=== PATIENT | female | born 1995 | race Caucasian/White ===

== ENCOUNTER → 2021-08-24 07:58 | Outpatient (BNVA) | payer OTHER, SELFPAY | PROVIDERS: PCP Family Medicine; Visit Provider Physician Assistant Surgical ==

== ENCOUNTER → 2021-08-30 08:08 | Outpatient (BNVA) | payer OTHER, SELFPAY | PROVIDERS: PCP Family Medicine; Visit Provider Surgery ==

== ENCOUNTER 2021-09-07 07:45 | Outpatient (REF) | payer OTHER, SELFPAY ==
--- NOTE | ~2021-09-07 | XR_ITS ---
EXAMINATION: XR CHEST CLINICAL INFORMATION: Obesity COMPARISON: None TECHNIQUE: 2 views of the chest were obtained. FINDINGS: No significant abnormality is noted involving the heart, lungs, mediastinum, bony thorax or soft tissues. XR/XR chest 2V IMPRESSION: Unremarkable examination.
--- NOTE | 2021-09-07 08:03 | ECG_ITS ---
Test Reason : obesity Blood Pressure : / mmHG Vent. Rate : 072 BPM Atrial Rate : 072 BPM P-R Int : 130 ms QRS Dur : 102 ms QT Int : 408 ms P-R-T Axes : 025 -01 -02 degrees QTc Int : 446 ms Normal sinus rhythm Incomplete right bundle branch block Nonspecific T wave abnormality Inferior leads Abnormal ECG When compared with ECG of 05-OCT-2017 09:14, T wave inversion no longer evident in Anterior leads Referred By: Ra Funk Electronically Signed By:KRISTINE SIMMONS MD
[2021-09-07 08:04] LABS: MANUAL DIFF FLAG NO
[2021-09-07 08:18] LABS: Basophils Percent Auto 0.8 % (0-2); Eosinophils Percent Auto 0.6 % (0-4); Hematocrit 38.3 % (37-47); Hemoglobin 12.9 g/dl (12.0-16.0); Imm Gran Abs Auto 0.01 X10*3/uL (0.00-0.03); Imm Gran Pct Auto 0.2 % (0.0-0.4); Lymphocytes Absolute Auto 1.8 X10*3/uL (1.2-4.9); Mean Corpuscular HGB Conc 33.7 g/dl (31.0-35.0); Mean Corpuscular Hemoglobin 29.1 pg (27.0-33.0); Mean Corpuscular Volume 86.3 fL (80-98); Mean Platelet Volume 11.5 fL (9.4-12.3); Monocytes Absolute Auto 0.4 X10*3/uL (0.1-1.2); Monocytes Percent Auto 7.4 % (2-11); Platelet Count 252 X10*3/uL (160-400); Red Blood Count 4.44 X10*6/uL (4.20-5.50); Red Cell Distribution Width 12.6 % (11.0-16.0); White Blood Count 5.2 X10*3/uL (4.8-10.8)
[2021-09-07 08:43] LABS: Estimated Average Glucose 85 mg/dL; Hemoglobin A1c % 4.6 %
[2021-09-07 08:45] LABS: Alanine Aminotransferase 10 U/L (0-31); Albumin Level 4.2 g/dL (3.5-5.0); Alkaline Phosphatase 45 U/L (39-117); Anion Gap 10 (12-20); Aspartate Amino Transferase 13 U/L (5-31); Bilirubin Total 0.6 mg/dL (0.0-1.0); Blood Urea Nitrogen 12 mg/dL (9-16); C Reactive Protein 0.17 mg/dL (< or = 0.50); Calcium 9.2 mg/dL (8.4-10.2); Carbon Dioxide 23 mmol/L (22-29); Chloride 108 mmol/L (96-108); Cholesterol 189 mg/dL; Estimated Glomerular Filt Rate > 60; Glucose Random 94 mg/dL (60-115); HDL Cholesterol 36 mg/dL; Iron 95 mcg/dL (30-160); LDL Cholesterol Calculated 139 mg/dl; Percent Iron Saturation 28 % (15-50); Potassium 3.9 mmol/L (3.3-5.1); Sodium 137 mmol/L (135-145); Total Iron Binding Capacity 336 mcg/dL (228-428); Triglycerides 73 mg/dL; Unsaturated Iron Binding 241 ug/dL
[2021-09-07 09:07] LABS: TSH reflex Free T4 0.85 uIU/mL (0.32-4.0); Vitamin D 25-OH Total 18.4 ng/mL (>30)
[2021-09-07 09:18] LABS: Insulin 10 uU/mL (2-29)
[2021-09-07 09:22] LABS: Vitamin B12 329 pg/mL (200-900)
[2021-09-07 09:35] LABS: Ferritin 11 ng/mL (10-122)
[2021-09-08 15:51] LABS: PTHI 53 pg/mL (14-64)
[2021-09-09 12:29] LABS: H Pylori Breath Test Positive (Negative)
[2021-09-10 06:16] LABS: Zinc 68 mcg/dL (60-130)
[2021-09-11 12:42] LABS: Vitamin B1 <6 nmol/L (8-30)
[2021-09-12 12:52] LABS: Vitamin A 30 mcg/dL (38-98)
== END 2021-09-07 07:46 | disposition home or self-care (01) ==
LOC: HO.LAB 07:45
PROVIDERS: PCP Family Medicine; Visit Provider Surgery
DX: E66.01 Morbid (severe) obesity due to excess calories (principal); K21.9 Gastro-esophageal reflux disease without esophagitis; Z11.0 Encounter for screening for intestinal infectious diseases
CPT/HCPCS: 36415; 71046; 80053; 80061; 82306; 82607; 82728; 82746; 83013; 83036; 83525; 83540; 83970; 84425; 84443; 84590; 84630; 85025; 86140; 93005; 99211

== ENCOUNTER → 2021-09-27 08:09 | Outpatient (BNVA) | payer OTHER, SELFPAY | PROVIDERS: PCP Family Medicine; Visit Provider Surgery ==

== ENCOUNTER → 2021-10-04 08:09 | Outpatient (BNVA) | payer OTHER, SELFPAY | PROVIDERS: PCP Family Medicine; Visit Provider Dietitian, Registered | DX: E66.01 Morbid (severe) obesity due to excess calories (principal); Z68.42 Body mass index [BMI] 45.0-49.9, adult | CPT/HCPCS: 97802 ==

== ENCOUNTER 2021-10-18 | Outpatient (REF) | payer OTHER, SELFPAY ==
[2021-10-22 07:19] LABS: H Pylori Breath Test Negative (Negative)
== END 2021-10-18 00:01 | disposition home or self-care (01) ==
LOC: HO.LNP
PROVIDERS: Visit Provider Physician Assistant Surgical
DX: Z11.0 Encounter for screening for intestinal infectious diseases (principal)
CPT/HCPCS: 83013

== ENCOUNTER → 2021-10-18 08:02 | Outpatient (BNVA) | payer OTHER, SELFPAY | PROVIDERS: PCP Family Medicine; Referring Provider Family Medicine; Visit Provider Surgery | DX: Z11.0 Encounter for screening for intestinal infectious diseases (principal) | CPT/HCPCS: 99211 ==

== ENCOUNTER → 2021-11-12 08:09 | Outpatient (BNVA) | payer OTHER, SELFPAY | PROVIDERS: PCP Family Medicine; Visit Provider Surgery ==

== ENCOUNTER 2021-11-25 08:22 | Outpatient (REF) | payer OTHER, SELFPAY ==
--- NOTE | ~2021-11-25 | US_ITS ---
EXAMINATION: US COMPLETE ABDOMEN WITH LIVER ELASTOGRAPHY CLINICAL INFORMATION: Bariatric service evaluation. E66.01 COMPARISON: CT abdomen and pelvis with IV contrast 09/30/2015. TECHNIQUE: Real-time imaging of the abdominal viscera. Noninvasive ultrasound liver fibrosis assessment is performed using Shea ElastPQ point quantification shear wave elastography (2D SWE) with a C5-2 MHz transducer. Multiple elastography samples are obtained. FINDINGS: PANCREAS: The pancreas is normal in size and contour and echogenicity. No pancreatic ductal distention. ABDOMINAL AORTA: The proximal, middle, and distal aortic segments are normal in caliber. INFERIOR VENA CAVA: Visualized portions are normal. LIVER: The liver is normal in size and smooth in contour. Parenchymal echogenicity is normal to borderline increased. There is a solitary subcapsular mildly hyperechoic circumscribed lesion anterior right lobe measuring 1.4 x 1.2 x 1.2 cm, likely hemangioma. Lesion is not appreciated on remote CT 2015. The remainder liver is homogeneous. The right lobe measures 16.3 cm in length. The left lobe measures 13.1 cm in length. Portal flow is towards the liver (hepatopetal). Shear wave liver elastography median stiffness is 1.49 m/s (reference: normal median stiffness is 1.3 m/s or less). IQR/median stiffness to assess sampling precision is 0.26 (reference: good quality data set is IQR/median stiffness of 0.15 or less). GALLBLADDER: Normal. The gallbladder is physiologically distended without evidence of stones, sludge, polyps, wall thickening or pericholecystic fluid. COMMON BILE DUCT: Normal in caliber measuring 0.3 cm in diameter. RIGHT KIDNEY: Normal. No hydronephrosis. No renal calculi or focal parenchymal lesions. The kidney measures 11.3 cm in maximum dimension. LEFT KIDNEY: Normal. No hydronephrosis. No renal calculi or focal parenchymal lesions. The kidney measures 10.9 cm in maximum dimension. SPLEEN: The spleen measures 13.5 cm in maximal dimension, similar to CT 2015 sagittal measurement 14 cm. FREE FLUID: None. US/US abdomen comp w elastography IMPRESSION: 1. Liver normal in size and contour. Probable solitary subcapsular hepatic hemangioma anterior right lobe 1.4 cm. 2. Liver elastography: Although measurements appear to rule out compensated advanced chronic liver disease, there is statistical variability of the sampling which decreases accuracy. 3. No cholelithiasis or ductal dilatation. Pancreas and kidneys unremarkable. REFERENCE: Society of Radiologists in Ultrasound Liver Stiffness Thresholds (2020): LIVER STIFFNESS THRESHOLDS: *Liver Stiffness equal or less than 1.3 m/s: High probability of being normal. *Liver Stiffness less than 1.7 m/s: In the absence of other known clinical signs, rules out compensated advanced chronic liver disease. *Liver Stiffness 1.7-2.1 m/s: Suggestive of compensated advanced chronic liver disease but need further test for confirmation. *Liver Stiffness over 2.1 m/s: Rules in compensated advanced chronic liver disease. *Liver Stiffness over 2.4 m/s: Suggestive of clinically significant portal hypertension. QUALITY OF DATA SET: *IQR/Median value equal or less than 0.15 implies a quality data set. *IQR/Median value over 0.15 implies a poor quality data set. SIGNIFICANT CHANGE FROM PRIOR EXAM: Significant change if liver stiffness measurement is 10% or greater from prior exam. OTHER CONSIDERATIONS: The stage of liver fibrosis may be overestimated in the setting of acute hepatitis, liver inflammation, elevated liver function tests, hepatic vascular congestion, obstructive cholestasis, non-fasting state, and infiltrative diseases such as amyloidosis and lymphoma. In some patients with NAFLD, the liver stiffness thresholds for compensated advanced chronic liver disease may be lower. In causes other than viral hepatitis and NAFLD, liver stiffness thresholds are not well established.
--- NOTE | ~2021-11-25 | FL_ITS ---
EXAMINATION: XR FLUOROSCOPY UPPER GI WITH AIR CLINICAL INFORMATION: Morbid obesity COMPARISON: None TECHNIQUE: Air-contrast upper GI examination FINDINGS: There is normal apposition of the vocal cords while saying E. There is normal elevation of the soft palate while saying candy. Patient swallowed thin barium without difficulty. There is no evidence of nasopharyngeal reflux or tracheal aspiration. There is normal esophageal motility without evidence of persistent stricture or mucosal abnormality. No hiatal hernia is seen. There was mild transient gastroesophageal reflux elicited with water siphon test. The stomach demonstrates normal distensibility without abnormal mass or ulceration. There was no delay in gastric emptying. The duodenal bulb and sweep appeared unremarkable. FLUOROSCOPY TIME: 0.4 minutes DOSE AREA PRODUCT: 17.563 mGy-m2 (milligray-meter squared) FL/FL upper GI w air IMPRESSION: Mild transient esophageal reflux within the distal third of the esophagus which clears rapidly. Otherwise unremarkable study.
--- NOTE | 2021-11-25 10:25 | CA_ITS ---
Transthoracic Echocardiogram Patient (Last, First, Middle): Suzette Azar, Gender: Female Date of : 1995 Age: 26 Procedure Date: 11/25/2021 Procedure Type: Transthoracic Echocardiogram Location: OP Height: 162.56 cm Weight: 122.47 kg BSA: 2.22 m2 Heart Rate: bpm BP: 130 / 95 mmHg Cobol Developer: MIKE Referring MD: Ra Funk MD Research/Program Director: Papa Gregg MD Symptoms: R94.31 - Abnormal electrocardiogram [ECG] [EKG] Study Quality: Technically Difficult/contrast ECG Rhythm: Sinus Conclusions: - Essentially normal study Findings Procedure Information Contrast agent, definity, is being given per protocol without apparent complications. Left Ventricle Normal left ventricular size, thickness, and systolic function. The visually estimated ejection fraction is between 60-65%. There is no evidence of regional wall motion abnormalities. Spectral Doppler is indicative of a normal filling pattern. Evidence suggests grade I (mild) diastolic dysfunction. Right Ventricle Normal right ventricular cavity size and systolic function. Atria Both atria are normal in size. There is lipomatous hypertrophy of the interatrial septum. There is no evidence of interatrial shunt. Aortic Valve The aortic valve structure and function is likely normal. There is no aortic valve stenosis. There is no aortic valve regurgitation. Mitral Valve Normal mitral valve structure and function. There is trace mitral valve regurgitation. There is no mitral valve stenosis. Pulmonic Valve The pulmonic valve was not well visualized. Tricuspid Valve Likely normal tricuspid valve structure and function. There is trace tricuspid valve regurgitation. The right ventricular systolic pressure is normal. The right ventricular systolic pressure is 19 mmHg. Normal right atrial pressure. There is no evidence of pulmonary hypertension. Great Vessels All visible segments of the aorta are normal in size. The pulmonary artery was not well visualized. Venous The inferior vena cava collapses greater than 50% with inspiration. Pericardium/Pleural There is no evidence of pericardial effusion. Prior Study Comparison No prior study available for comparison. Measurements 2D Linear Measurements IVSd: 0.92 0.6-0.9/0.6-1.0 cm LVIDd: 5.09 3.9-5.3/4.2-5.9 cm LVIDd Index: 2.29 2.4-3.2/2.2-3.1 cm/m2 LVIDs: 3.22 2.0-3.6 cm LVPWd: 0.76 0.7-1.1 cm Ao Root: 3.10 2.1-3.5 cm LA Diam: 3.90 2.7-3.8/3.0-4.0 cm LAIDs Index: 1.76 1.5-2.3 cm/m2 LV Mass: 186.41 67-162/88-224 g LV Mass Index: 83.97 43-95/49-115 g/m2 LVOT Diam: 2.20 3.0+(-)1.3 cm 2D Systolic Function EF 4C: 62.90 >55% EF 2C: 69.20 >55% EF BiP: 64.20 >55% Mitral Valve MV Pk E: 1.06 MV PK A: 0.62 MV Decel Time: 201.00 E/A: 1.70 E'Lateral: 12.60 E'Medial: 10.10 E/E' Med: 10.50 E/E' Lat: 8.40 PHT: 59.00 MVA PHT: 3.73 Decel [place]: 5.29 Aortic Valve AoV Pk Robert: 1.49 AoV Mn Robert: 1.07 AoV VTI: 0.33 AoV Pk Grad: 9.00 Aov Mn Grad: 5.00 VALORIE Cont.VTI: 3.48 LVOT LVOT Pk Robert: 1.40 LVOT Mn Robert: 0.94 LVOT VTI: 0.30 LVOT Pk Grad: 8.00 LVOT Mn Grad: 4.00 LVOT Diam: 2.20 LVOT Area: 3.80 Diastolic Function MV Pk E: 1.06 MV Pk A: 0.62 E/A: 1.70 E'Medial: 10.10 E/E' Med: 10.50 E' Laterial: 12.60 E/E' Lat: 8.40 Right Ventricle TAPSE (mm): 26.30 TVS' Robert: 11.40 Tricuspid Valve TR Pk Robert: 2.00 TR Pk Grad: 16.00 RA Press: 3.00 RVSP: 19.00 Great Vessels Aorta Ao Root-2D: 3.10 2.0-3.7 cm Ao Asc: 3.30 2.1-3.4 cm Ao Arch: 2.90 Updated in Other Vendor System with Status of Final Papa Gregg MD electronically signed on 11/25/2021 3:12:49 PM with status of Final
== END 2021-11-25 08:23 | disposition home or self-care (01) ==
LOC: HO.XRAY 08:22
PROVIDERS: PCP Family Medicine; Visit Provider Surgery
DX: E66.01 Morbid (severe) obesity due to excess calories (principal); K21.9 Gastro-esophageal reflux disease without esophagitis; R94.31 Abnormal electrocardiogram [ECG] [EKG]
CPT/HCPCS: 74246; 76705; 76981; 93306; Q9957

== ENCOUNTER → 2021-12-13 08:02 | Outpatient (BNVA) | payer OTHER, SELFPAY | PROVIDERS: PCP Family Medicine; Visit Provider Surgery ==

== ENCOUNTER → 2022-01-12 08:12 | Outpatient (BNVA) | payer OTHER, SELFPAY | PROVIDERS: PCP Family Medicine; Visit Provider Surgery ==

== ENCOUNTER → 2022-02-11 08:18 | Outpatient (BNVA) | payer OTHER, SELFPAY | PROVIDERS: PCP Family Medicine; Visit Provider Surgery | DX: Z13.89 Encounter for screening for other disorder (principal) ==

== ENCOUNTER → 2022-02-17 10:28 | Outpatient (BNVA) | payer OTHER, SELFPAY | PROVIDERS: PCP Family Medicine; Referring Provider Family Medicine; Visit Provider Surgery | DX: Z13.89 Encounter for screening for other disorder (principal) ==

== ENCOUNTER 2022-02-24 08:29 | Inpatient (IN) | payer OTHER, SELFPAY ==
[2022-02-16 10:55] VITALS: BMI 43.9
[2022-02-17 10:25] LABS: MANUAL DIFF FLAG NO
[2022-02-17 11:12] LABS: Basophils Percent Auto 0.8 % (0-2); Eosinophils Percent Auto 0.6 % (0-4); Imm Gran Abs Auto 0.01 X10*3/uL (0.00-0.03); Imm Gran Pct Auto 0.2 % (0.0-0.4); Lymphocytes Absolute Auto 1.8 X10*3/uL (1.2-4.9); Lymphocytes Percent Auto 34.2 % (20-40); Mean Corpuscular HGB Conc 33.3 g/dl (31.0-35.0); Mean Corpuscular Hemoglobin 29.4 pg (27.0-33.0); Mean Corpuscular Volume 88.2 fL (80.0-98.0); Mean Platelet Volume 12.1 fL (9.4-12.3); Monocytes Absolute Auto 0.4 X10*3/uL (0.1-1.2); Monocytes Percent Auto 7.6 % (2-11); Neutrophils Percent Auto 56.6 % (45-73); Platelet Count 230 X10*3/uL (160-400); Red Blood Count 4.42 X10*6/uL (4.20-5.50); Red Cell Distribution Width 12.9 % (11.0-16.0); White Blood Count 5.2 X10*3/uL (4.8-10.8)
[2022-02-17 11:17] LABS: INTERNATIONAL NORM RATIO 1.1 (0.9-1.1); Prothrombin Time 12.9 SEC (9.9-13.0)
[2022-02-17 11:19] LABS: Partial Thromboplastin Time 35.6 SEC (24.1-38.0)
[2022-02-17 11:28] LABS: Estimated Average Glucose 88 mg/dL; Hemoglobin A1c % 4.7 %
[2022-02-17 11:53] LABS: Alanine Aminotransferase 12 U/L (0-31); Albumin Level 4.3 g/dL (3.5-5.0); Alkaline Phosphatase 39 U/L (39-117); Anion Gap 13 (12-20); Aspartate Amino Transferase 15 U/L (5-31); Bilirubin Total 0.8 mg/dL (0.0-1.0); Blood Urea Nitrogen 13 mg/dL (9-16); C Reactive Protein 0.21 mg/dL (< or = 0.50); Calcium 9.5 mg/dL (8.4-10.2); Carbon Dioxide 21 mmol/L (22-29); Chloride 108 mmol/L (96-108); Cholesterol 176 mg/dL; Creatinine Clr Calc Pharmacy 143.6; Estimated Glomerular Filt Rate > 60; Glucose Random 77 mg/dL (60-115); HDL Cholesterol 35 mg/dL; LDL Cholesterol Calculated 126 mg/dl; Sodium 138 mmol/L (135-145); Total Protein 7.2 g/dL (6.5-8.0); Triglycerides 79 mg/dL
[2022-02-17 12:31] LABS: TSH reflex Free T4 0.52 uIU/mL (0.32-4.0)
[2022-02-17 13:11] LABS: Insulin 8 uU/mL (2-29)
--- NOTE | 2022-02-18 23:43 | P.HPSUR_ITS ---
Pre-Procedural Eval Section A Date of Service: 02/18/22 The patient is an INPATIENT: Yes The History & Physical has been completed within 30 days and I have reviewed it.: Yes Section B Chief Complaint: obesity Relevant Family History (Specify if Yes): No Relevant Social History: None Present Medications: None Medical History: No relevant PMH History of Previous Operations: No relevant previous surgery Allergies: Allergies Allergy/AdvReac Type Severity Reaction Status Date / Time mold Allergy Severe Rash, Itchy Verified 02/16/22 10:52 Seasonal Allergies Allergy Severe Runny Verified 02/16/22 10:52 Nose, Watery Eyes Review of Systems Sugical H&P ROS: Negative: Constitution, Cardiovascular, Respiratory, Neurological, Psychiatric, Hem-Onc, Allergic/Immunologic, Gastrointestinal, Genitourinary, Musculoskeletal, Integumentary, Endocrine and Eyes/Ears/Nose/Throat Exam Surgical H&P Exam: Normal: HEENT, Normal: Heart, Normal: Lungs, Normal: Extr emities, Normal: Abdomen, Normal: Skin and Normal: Neurological Plan Diagnosis/Plan: Unchanged I have reviewed the history and physical and performed a pertinent physical examination on my patient. No changes have occurred unless specified.
--- NOTE | 2022-02-23 10:56 | HO.ANESPROP2 ---
Documented by User: Imelda Grimes NP 02/23/22 10:57 HPI - Anesthesia Eval Consult details Narrative: 26yo F for Gastrectomy Sleeve,EGD,poss diaphragmatic hernia,poss ventral hernia,poss open, PMFSH Active Problems Active Problems: All Active Problems (Updated 10/05/21 @ 08:55 by Fariba Arndt, [facility]) SUKUMAR (generalized anxiety disorder) (Acute) Moderate episode of recurrent major depressive disorder (Acute) H. pylori infection (Acute) Vitamin B12 deficiency (Acute) Vitamin A deficiency (Acute) Vitamin D deficiency (Acute) Vitamin B1 deficiency (Acute) Abnormal EKG (Acute) Back pain (Acute) GERD (gastroesophageal reflux disease) (Acute) Anxiety (Acute) Depression (Acute) Morbid obesity (Acute) Past Medical History Medical History Anxiety Back pain Depression GERD (gastroesophageal reflux disease) Morbid obesity Family History Family History Mother Asthma Diabetes Hypertension Father Asthma Diabetes Hyperlipidemia Hypertension Sister No problems noted. Sister No problems noted. Sister No problems noted. Sister No problems noted. Brother No problems noted. Brother No problems noted. Brother No problems noted. Brother No problems noted. Surgical History Surgical History Hx of wisdom tooth extraction Social History Social History Are you a primary pulmonary care nurse to a significant other at home: No Do you presently have visiting nurse or other home services: No Alcohol intake: current Alcohol intake frequency: holidays/special occasions only Patient Tobacco Use Status: Never used Tobacco Use of substances other than those prescribed or required for medical reasons: No Have you been hit, kicked, punched, or otherwise hurt by someone within the past year? If so, by whom?: No Are you DNR?: No Advance Directives: No Advance Directives Information Provided: Yes (Mailed w/ Pre-op Instructions) Advance Directives on File: No Recently lost weight without trying: No How much weight loss: 34pounds or more Eating poorly because of decreased appetite: No Nutrition screen score: 4 Nutrition Risks: No Nutritional Risk Patient : No FDLMP: 01/21/22 : No Poor oral hygiene: No Meds Allergies Allergy/AdvReac Type Severity Reaction Status Date / Time mold Allergy Severe Rash, Itchy Verified 02/24/22 08:44 Seasonal Allergies Allergy Severe Runny Verified 02/24/22 08:44 Nose, Watery Eyes Home Medications Medication Instructions Recorded Confirmed Last Taken Type ibuprofen 800 mg tablet 800 mg PO TID PRN 08/24/21 02/16/22 02/11/22 History sertraline 25 mg tablet 25 mg PO DAILY 08/24/21 02/16/22 Unknown History Exam Exam Date and Time: February 23, 2022 1056 Height,Weight and Vital Signs: Height 5 ft 4 in Weight 116.12 kg Pertinent Lab Results Pertinent Lab Results: Laboratory Tests 02/17/22 02/17/22 02/17/22 10:15 10:24 10:24 WBC 5.2 RBC 4.42 Hgb 13.0 Hct 39.0 MCV 88.2 MCH 29.4 MCHC 33.3 RDW 12.9 Plt Count 230 MPV 12.1 Immature Gran % (Auto) 0.2 Neut % (Auto) 56.6 Lymph % (Auto) 34.2 [place] % (Auto) 7.6 Eos % (Auto) 0.6 Baso % (Auto) 0.8 Lymph # (Auto) 1.8 [place] # (Auto) 0.4 Eos # (Auto) 0.0 Baso # (Auto) 0.0 Abs Immat Gran (auto) 0.01 Absolute Neuts (auto) 3.0 Absolute Nucleated RBC 0.000 Nucleated RBC % (auto) 0.0 PT 12.9 INR 1.1 APTT 35.6 Sodium Potassium Chloride Carbon Dioxide Anion Gap BUN Creatinine Estim Creat Clear Calc Estimated GFR Random Glucose Estimat Average Glucose Hemoglobin A1c % Insulin Level Calcium Total Bilirubin AST ALT Alkaline Phosphatase C-Reactive Protein Total Protein Albumin Triglycerides Cholesterol LDL Cholesterol, Calc HDL Cholesterol TSH Blood Type A Positive Antibody Screen NEGATIVE 02/17/22 02/17/22 10:24 10:24 WBC RBC Hgb Hct MCV MCH MCHC RDW Plt Count MPV Immature Gran % (Auto) Neut % (Auto) Lymph % (Auto) [place] % (Auto) Eos % (Auto) Baso % (Auto) Lymph # (Auto) [place] # (Auto) Eos # (Auto) Baso # (Auto) Abs Immat Gran (auto) Absolute Neuts (auto) Absolute Nucleated RBC Nucleated RBC % (auto) PT INR APTT Sodium 138 Potassium 4.0 Chloride 108 Carbon Dioxide 21 L Anion Gap 13 BUN 13 Creatinine 0.73 Estim Creat Clear Calc 143.6 Estimated GFR > 60 Random Glucose 77 Estimat Average Glucose 88 Hemoglobin A1c % 4.7 Insulin Level 8 Calcium 9.5 Total Bilirubin 0.8 AST 15 ALT 12 Alkaline Phosphatase 39 C-Reactive Protein 0.21 Total Protein 7.2 Albumin 4.3 Triglycerides 79 Cholesterol 176 LDL Cholesterol, Calc 126 HDL Cholesterol 35 TSH 0.52 Blood Type Antibody Screen Narrative Narrative: EKG 08/2021 Vent. Rate : 072 BPM ? ? Atrial Rate : 072 BPM ?? P-R Int : 130 ms? QRS Dur : 102 ms ? ? QT Int : 408 ms ? ? ? P-R-T Axes : 025 -01 -02 degrees ?? QTc Int : 446 ms ? Normal sinus rhythm Incomplete right bundle branch block Nonspecific T wave abnormality Inferior leads Abnormal ECG When compared with ECG of 05-OCT-2017 09:14, T wave inversion no longer evident in Anterior leads ECHO 10/2021 Conclusions: - Essentially normal study ? ? Assessment and Plan Assessment Anesthesia Assessment: Chart Reviewed Documented by User: Jordin Bone MD 02/24/22 11:27 [facility] Past Medical History Medical History Anxiety Back pain Depression GERD (gastroesophageal reflux disease) Morbid obesity Family History Family History Mother Asthma Diabetes Hypertension Father Asthma Diabetes Hyperlipidemia Hypertension Sister No problems noted. Sister No problems noted. Sister No problems noted. Sister No problems noted. Brother No problems noted. Brother No problems noted. Brother No problems noted. Brother No problems noted. Family history of problems with anesthesia: No Surgical History Surgical History Hx of wisdom tooth extraction History of Problems with Anesthesia: No Social History Social History Are you a primary pulmonary care nurse to a significant other at home: No Do you presently have visiting nurse or other home services: No Alcohol intake: current Alcohol intake frequency: holidays/special occasions only Patient Tobacco Use Status: Never used Tobacco Use of substances other than those prescribed or required for medical reasons: No Have you been hit, kicked, punched, or otherwise hurt by someone within the past year? If so, by whom?: No Are you DNR?: No Advance Directives: No Advance Directives Information Provided: Yes (Mailed w/ Pre-op Instructions) Advance Directives on File: No Recently lost weight without trying: No How much weight loss: 34pounds or more Eating poorly because of decreased appetite: No Nutrition screen score: 4 Nutrition Risks: No Nutritional Risk Patient : No FDLMP: 01/21/22 : No Poor oral hygiene: No Meds Allergies Allergy/AdvReac Type Severity Reaction Status Date / Time mold Allergy Severe Rash, Itchy Verified 02/24/22 08:44 Seasonal Allergies Allergy Severe Runny Verified 02/24/22 08:44 Nose, Watery Eyes Home Medications Medication Instructions Recorded Confirmed Last Taken Type ibuprofen 800 mg tablet 800 mg PO TID PRN 08/24/21 02/16/22 02/11/22 History sertraline 25 mg tablet 25 mg PO DAILY 08/24/21 02/16/22 Unknown History Exam Airway Mallampati Class: II TM Dist: >3cm Neck ROM: Full Loose/Missing/Broken Teeth: No Other: Large tonsils Assessment and Plan Assessment Anesthesia Assessment: Anesthesia Plan Discussed Final Anesthetic Review Family History of Problems with Anesthesia: No History of Problems with Anesthesia: No NPO: Yes ASA Class: III Final Preanesthetic Review: No Changes in Pt Med Stat, Meds/Allgs Chart Reviewed, Consent Obtained/Reviewed and Anes Risks/Benef Reviewed Patient Risk: Intermediate Procedure Risk: Intermediate Anesthetic Plan Anesthetic Plan: GA Disposition: Standard PACU
[2022-02-23 12:37] LABS: COVID-19 Test Negative (Negative); IDNOW Serial# 16C4AD1C
[2022-02-24] VITALS (16 sets, daily range): BP systolic 141–167; BP diastolic 83–109; PULSE 60–87; RESP 15–20; TEMP 36.2–37.6; O2SAT 98–100
[2022-02-24 08:59] LABS: UPreg QC Valid YES; Urine Pregnancy NEGATIVE (NEGATIVE)
[2022-02-24] MEDS: Lactated Ringers 1,000 ML 999 ML IV (09:25)
[2022-02-24] MEDS: ceFAZolin Sodium/Dextrose,Iso 2 GM/50 ML PIGGYBACK IV ×2 (10:54→17:48)
--- NOTE | 2022-02-24 13:08 | P.BOP_ITS ---
Brief Operative Note Date of Service: 02/24/22 Pre-op diagnosis: Morbid obesity and comorbidities (see below) Post-op diagnosis: same Procedure: INITIAL PATIENT BMI ON PRESENTATION AT OUR OFFICE: 49.8 kg/m2 LAST BMI BEFORE SURGERY: 44.6 kg/m2 COMORBIDITIES: GERD, depression, anxiety, headaches, back pain, liver steatosis, RBBB ?The patient presented to the Weight Management Program with significant obesity that was negatively impacting the patient's comorbidities as listed above.? The program is a phased program with a special focus on preoperative medical weight management to promote substantial weight loss and prepare the patients for the second phase of the program: bariatric surgery. The patient participated in an intensive weekly lifestyle ?intervention and exercise program during which the patient ?has lost between the initial office visit and the last preoperative visit 27.2lbs, or 9.54% of initial actual body weight. It was deemed appropriate for the patient to now have bariatric surgery. In light of the current Covid-19 pandemic and the well documented strong association of obesity and increased risk of worse outcomes if infected with Covid-19 (REFERENCES: https://pubmed.ncbi.nlm.nih.gov/16224519/ ,? https://pubmed.ncbi.nlm.nih.gov/85248210/ ), any delay in undergoing bariatric surgery may lead to the patient's worsening health condition and increased?risk of more severe Covid-19 disease if infected. In addition a recent?study from [facility] published in [employer] on 11/22/2021 ([email or web address]) found that, among patients with obesity, substantial weight loss achieved with surgery was associated with improved outcomes of COVID-19 infection. The findings suggest that obesity can be a modifiable risk factor for the severity of COVID-19 infection. In addition, the patient met the BMI-criteria for bariatric surgery based on the BMI on initial presentation. The patient should not be penalized for achieving such weight loss because ?it is not sustainable long-term without surgical intervention and it was achieved in preparation for bariatric surgery ?under my direction and based on my published research ([email or web address]).pdf and? https://www.soard.org/article/[email or web address](78)57867-X/pdf ) ?that a 10% preopera tive weight loss improves long-term weight loss after surgery and reduces perioperative complications.? Insurance carriers such as [facility] have endorsed my recommendations ?and have included in their policies criteria to include a 10% preoperative weight loss requirement. PROCEDURE: Esophago-gastroscopy, laparoscopic lysis of adhesions, laparoscopic sleeve gastrectomy and laparoscopic gastropexy INDICATIONS: This is a 26 year-old female who was electively scheduled for laparoscopic, possibly open sleeve gastrectomy. The risks and complications of the procedure were discussed with the patient in advance, particularly the possibility of ; pulmonary embolism; staple line leak; bleeding; GERD; cardiac, pulmonary, or renal complications; as well as long-term problems such as insufficient weight loss, vitamin deficiency, strictures, or ulcers. The patient understood all the risks, and was in agreement to proceed with surgery. DESCRIPTION OF PROCEDURE: After informed consent was obtained from the patient, the patient was given preoperative antibiotics, and was transferred to the operating room. After successful induction of general anesthesia, pneumatic compression devices were placed on both lower extremities. An upper endoscopy was performed next. The oropharynx and esophagus appeared to be within normal limits. There was no diaphragmatic hernia present consistent with the findings of the preoperative upper GI. The stomach was entered. Then after all fluid and air were suctioned and the stomach was fully decompressed, the scope was withdrawn and secured in the mid esophagus. The patient was then prepped and draped in the usual sterile manner, and abdominal access was established at the right upper quadrant with the Cayla technique. A 12 mm blunt port was inserted, and the abdomen was insufflated with CO2 to a pressure of 15 mmHg. Under direct visualization, additional ports were placed, specifically two 5 mm Versi-step ports to the left upper quadrant, and a 5 mm Versi-Step port to the right upper quadrant. 1% lidocaine plain was used to infiltrate all port sites as well as all fascia defects. Following that, the patient was placed in a steep reverse Trendelenburg position. An additional 5 mm port was placed to the right flank for the Mediflex retractor that was used to retract the left lobe of the liver. The gastro-esophageal fat pad was opened with the ultrasonic device (Thunderbeat, Olympus) and the anterior esophagus and hiatus were exposed. The angle of His was opened with the ultrasonic device the fundus of the stomach from any diaphragmatic and splenic attachments. I then opened the gastrocolic ligament between the transverse colon and the greater curvature of the stomach with the ultrasonic device to enter the lesser sac and facilitate the ligation of the short gastric vessels. I started at a mid-point along the greater curvature and using the Thunderbeat, all short gastric vessels were divided all the way to the angle of His until the left herminia was completely dissected at its entirety. I then divided the gastro-colic ligament distally to a distance of about 3-4 cm proximal to the pylorus. There were extensive congenital adhesions between the pancreas and posterior gastric wall. Those were lysed completely with the ultrasonic device. Adhesiolysis took approximately 45 min to complete. The stomach was then divided transversely with one Endo KEVIN-45 purple and four KEVIN-60 articulating orange loads using the AEON stapler and loads. Every effort was made that the gastric sleeve had a tubular shape and an even caliber throughout. Once the sleeve resection was completed, the staple line of the gastric sleeve was reinforced with Hemoclips. The resected stomach was retrieved without difficulty from the Cayla port. A gastropexy was then performed in order to prevent postoperative GERD and partial gastric volvulus. Several interrupted 2.0 Surgidac sutures were placed between the sleeve's staple line and the previously divided greater omentum and gastro-colic ligament using the Endo-Stitch device. ?An upper endoscopy was performed. There was no narrowing at the GE junction. The scope was easily advanced all the way to the pylorus which was clearly visualized. There was no narrowing anywhere and the sleeve's caliber was even throughout. The sleeve's staple line was inspected and there was no evidence of ischemia, bleeding or dehiscence. At that point the gastroscope was withdrawn from the patient?s mouth while we were decompressing the bowel and the stomach from any remaining air. I looked into the lesser sac to see how the sleeve was situating and it was situating well. There was no bleeding from the staple line, spleen, or short gastric vessels. The Mediflex retractor was removed, and the undersurface of the liver was inspected and there was no bleeding. The patient was placed in supine position. I closed the fascial defect of the 12 mm port site with a figure of eight #1 Polysorb suture. Then 100 cc 0.25 % Marcaine plain with 10 mg of Dexamethasone were used to infiltrate the fascial closure as well as all skin incisions. At this point, the abdomen was deflated, all ports were removed under direct vision, and no bleeding was noted from any of the port sites. The skin incisions were irrigated with saline and were closed with 4-0 absorbable monofilament sutures. Steri-Strips and OpSites were used to cover all incisions. The patient was extubated and was transferred in stable condition to the recovery room for further care. I was present and performed all peters parts of the procedure. Mr. Calvillo was the speech language pathology assistant. There were no residents to assist with this case. Daljit Funk MD, PhD, FACS Surgeon: Ra Funk MD Anesthesia: GETA, local and other (TAP block) Was an Supervisor Boat Outfitting used for this Procedure?: Yes Supervisor [employer] Outfitting: El Calvillo Estimated blood loss (mL): 10 IV fluids (mL): 2,500 Urine output (mL): 0 (No Esquivel to record) Pathology: other (Stomach) Condition: stable Disposition: PACU
--- NOTE | 2022-02-24 13:12 | PM.PNGS ---
Subjective Subjective Date of Service: 02/24/22 Interval history: Patient has mild incisional pain, but was able to ambulate and use the incentive spirometer. She is tolerating phase 1 bariatric diet Physical Exam Vital Signs: Vital Signs: Last Vital Signs Temp 99.6 F 02/24/22 08:48 Pulse 74 02/24/22 08:48 Resp 18 02/24/22 08:48 BP 141/83 H 02/24/22 08:48 Pulse Ox 99 02/24/22 08:48 BMI result Body Mass Index 43.9 GI: Inspection: Yes normal to inspection, Yes incision (clean, dry and intact) and Yes obesity Extrem: Right lower extremity: normal to inspection (no calf tenderness) Left lower extremity: normal to inspection (no calf tenderness) Objective Data Active Medications Hydromorphone HCl (Hydromorphone Hcl 0.5 Mg/0.5 Ml Syringe) 0.25 mg IVPUSH Q5M PRN; Protocol PRN Reason: Pain, Severe (Pain Scale 7-10) Lactated Ringer's (Lr) 1,000 mls @ 100 mls/hr IVCONT .Q10H RANDI Ondansetron HCl (Ondansetron Hcl 4 Mg/2 Ml Vial) 4 mg IVPUSH ONCE PRN PRN Reason: Nausea and Vomiting Labs CBC & Chem 7: 02/17/22 10:24 02/17/22 10:24 Labs: Laboratory Results - last 24 hr 02/24/22 08:30 Urine Test NEGATIVE Progress Note: A&P Assessment and plan (1) Morbid obesity: Status: Acute Assessment and Plan: s/p laparoscopic sleeve gastrectomy, lysis of adhesions and gastropexy Doing well Check am labs. If OK, will discharge home? (2) Depression: Status: Acute (3) Anxiety: Status: Acute (4) GERD (gastroesophageal reflux disease): Status: Acute (5) Back pain: Status: Acute (6) SUKUMAR (generalized anxiety disorder): Status: Acute (7) Chronic headaches: Status: Acute (8) RBBB: Status: Acute (9) Status post sleeve gastrectomy: Status: Acute Fall Risk Details Current Medications: Current Medications Hydromorphone HCl (Hydromorphone Hcl 0.5 Mg/0.5 Ml Syringe) 0.25 mg IVPUSH Q5M PRN; Protocol PRN Reason: Pain, Severe (Pain Scale 7-10) Lactated Ringer's (Lr) 1,000 mls @ 100 mls/hr IVCONT .Q10H RANDI Ondansetron HCl (Ondansetron Hcl 4 Mg/2 Ml Vial) 4 mg IVPUSH ONCE PRN PRN Reason: Nausea and Vomiting Time Spent With Patient Time: Total time spent is greater than 50% in coordination of care (as documented) at patient's floor/unit and/or counseling patient: Quality Stroke Does the patient have a stroke diagnosis?: No VTE Prior VTE?: No VTE Risk Level:: Surgical - moderate VTE Device Contraindication: N/A - Device Ordered VTE Drug Contraindication: Treatment Not Indicated
--- NOTE | 2022-02-24 13:14 | PM.DS ---
DS: Providers Provider Date of Service: 02/25/22 Date of admission: 02/24/22 08:29 Primary care physician: Arpit Alvarado MD DS: Summary Hospital Course Hospital Course: ADMITTING DIAGNOSIS: morbid obesity, anxiety, LBP, depression, GERD ? DISCHARGE DIAGNOSIS: same, s/p laparoscopic sleeve gastrectomy ? PAST SURGICAL HISTORY: None ? PROCEDURE: upper endoscopy, laparoscopic sleeve gastrectomy ? DISCHARGE SUMMARY: ? History of Present Illness: ? The patient is a?26 year-old woman with a BMI of?49.7 kg/m2 and associated co-morbidities as described above. The patient had extensive work-up,lost?27.2 lbs preoperatively and was electively scheduled for laparoscopic, possible open sleeve gastrectomy and gastropexy. Risks and complications of the surgery were discussed with the patient in advance, particularly the possibility of , pulmonary embolism, anastomotic leak, bleeding, bowel injury, GERD, cardiac, renal or pulmonary complications. The patient understood all the risks and was in agreement with the surgical plan. ? Hospital Course: ? The patient underwent an uneventful laparoscopic sleeve gastrectomy with gastropexy on the day of admission. Postoperatively, the patient was transferred to the surgical floor. The patient received IV Acetaminophen and IV dilaudid for pain control. Patient was started on bariatric phase 1 diet POD #0. On postoperative day one, the patient was feeling well without nausea, vomiting, fevers, or tachycardia. The patient had some mild incisional pain and the abdomen was soft. ? On the morning of postoperative day one, the patient was continued on 1 ounce of water or ice every half hour. During the day, the patient did fairly well, having some incisional pain, but able to ambulate adequately and to tolerate liquids well. ? Since the patient is doing well, we decided that the patient was ready to be discharged. The patient was given instructions to follow-up with me next week and to call my office for any fever over 101, persistent abdominal pain, nausea, vomiting, GERD, symptoms of DVT such as calf tenderness, or leg swelling, or pulmonary embolism such as chest pain or shortness of breath. The patient was also instructed to drink 40-60 ounces of liquids per day using the 1-ounce cups. The patient had been given prescriptions for Tylenol for pain, Zofran prn for nausea, and pantoprazole and carafate previously. The patient was encouraged to ambulate and use the incentive spirometer. The patient was allowed to shower, but no baths, and encouraged to stay active at home. All of these instructions were given to the patient personally. All questions were answered and the patient understood all instructions, the instructions were also given to the patient in print. Time Spent with Patient Time attestation: Total time spent providing and/or coordinating discharge services: Discharge coordination time: Less than 30 minutes Quality: Stroke Does the patient have a stroke diagnosis?: No Physical Exam Vital Signs: Vital Signs: Last Vital Signs Temp 99.6 F 02/24/22 08:48 Pulse 74 02/24/22 08:48 Resp 18 02/24/22 08:48 BP 141/83 H 02/24/22 08:48 Pulse Ox 99 02/24/22 08:48 BMI result Body Mass Index 43.9 DS: Data Data Completed and Pending Pending studies at discharge: Pending at discharge 02/24/22 12:16 Surgical [PTH] Routine Labs on day of discharge: Laboratory Results - last 24 hr 02/24/22 08:30 Urine Test NEGATIVE Discharge Plan Discharge Patient Disposition: Home, Self-Care Discharge Diagnosis: s/p laparoscopic sleeve gastrectomy Referrals: Arpit Alvarado MD [Primary Care Provider] - 1 Week Discharge Medications: Continued pantoprazole 40 mg tablet,delayed release (DR/EC) 40 mg PO DAILY Qty: 30 2RF sucralfate 100 mg/mL suspension 10 ml PO BID Qty: 400 2RF ondansetron HCl 4 mg tablet 4 mg PO Q12H Qty: 20 0RF Discontinued thiamine HCl (vitamin B1) 100 mg tablet 100 mg PO DAILY Qty: 30 2RF cholecalciferol (vitamin D3) 125 mcg (5,000 unit) capsule 125 mcg PO DAILY Qty: 30 2RF mecobalamin (vitamin B12) 1,000 mcg tablet,disintegrating 1,000 mcg sublingual DAILY Qty: 30 2RF Rx Instructions: place tablet under tongue and allow to dissolve for at least30 secs before swallowing vitamin A 10,000 unit capsule 1 cap PO DAILY 0RF ibuprofen 800 mg tablet 800 mg PO TID PRN (Reason: Pain) 0RF sertraline 25 mg tablet 25 mg PO DAILY 0RF polyethylene glycol 3350 [Miralax] 17 gram powder in packet 17 g PO DAILY Qty: 14 0RF Rx Instructions: Mix each packet with 8oz of water and do 7 packets on 02/22/22 and another 7 packets on 02/23/2022 Discharge Orders: Discharge Order (Routine); Ordered 02/25/22 Ordered By: El Calvillo Diet: other Activity on Discharge: No heavy lifting Stand Alone Forms: Patient Portal Discharge page Care Plan Goals: weight loss Health Concerns: morbid obesity Plan of Treatment: No tub baths, sex or returning to work until discussed at first post op appointment. No exercise, alcohol, tobacco or illegal drug use. Continue to use incentive spirometer hourly while awake. Walk in home for 5- 10 minutes every 2 hours during the first week. Follow all instructions in the bariatric handbook and call with any questions.Discharge Instructions 1. Please call your doctor or come back to the emergency room should any new symptoms arise. 2. You will receive a courtesy call from [facility] 24-48 hours after discharge. 3. Activity: abstain from alcohol, practice limited stair climbing, no bending, no driving, no exercise, no illicit substances, no lifting, no sex, no tub bath, no work. 4. Diet: continue as discussed with Dr. Funk. 5. Dressing Change/Wound Care: Your incision is covered by clear bandages and guaze underneath. If the area is tender, you may apply an ice pack for short intervals (no more than 20 minutes on, followed by at least 20 minutes off). Do not apply heat. Do not use creams, lotions, or topical antibiotics unless instructed to do so by your surgeon. These can cause infection or allergic reaction. 6. Call your doctor if: - Your temperature exceeds 101.5 F - You experience excessive pain or swelling - You have an unexpected reaction to medication - You have excessive bleeding - You experience continued vomiting/nausea - Your incision begins to separate - Your incision shows signs of infection such as increased redness, swelling, excessive pain, heat, or drainage (light blood or clear fluid is normal) 7. General instructions: No lifting greater than 5 lbs for the next 4 weeks[address] driving within 24 hours of taking narcotic pain medications. If you do not move your bowels in the next 2 days, please take milk of magnesia over the counter. Please follow the post op diet and do not advance your diet until you are seen in the office in about 2 weeks. Please walk around your home every hour or two to prevent blood clots from forming in your legs. You do not need to wake from sleeping to walk. Please sleep in a bed or couch to prevent kinking at the hips and knees. Please take your incentive spirometer (your lung briefcase sewer) home with you and use it for the next few days to prevent pneumonias. You may shower, no hot tubs, baths or swimming pools. Please call the office with any questions or concerns such as increasing abdominal pain, fever, chills, shortness of breath, chest pain, leg pain or swelling, or redness or drainage from your incisions. Please stay on stage 3 diet which includes sugar free clear liquids such as ice pops and jello and broth and crystal light. Avoid all carbonation. Please drink 3 protein shakes with at least 25-30 grams of protein daily or 3 of the Celebrate 4:1 shakes which can be purchased in our office. The Celebrate shakes have all of the bariatric vitamins you need if you consume these shakes. If you are drinking other protein shakes, you will need to purchase the Celebrate multivitamins and calcium that we provide in the office (they will provide all the vitamins you need). Please make sure you are consuming at least 40-60 ounces of water in addition to your 3 protein shakes daily. Do not hesitate to contact the office with any questions at . The patient's medical history has been reviewed and they are considered low risk for post op DVT and therefore DVT prophylaxis is not considered necessary. Travel after surgery was reviewed. The patient has not disclosed any travel plans during the first 30 days after surgery and they have been advised that within the first 30 days after surgery any bus, plane, train or car travel over 2 hours in duration is contraindicated due to the possibility of developing blood clots from immobility. Any travel, needs to include periods of ambulation of 10 minutes in duration every 2 hours.? The patient was instructed to discuss any plans for travel during this period with their bariatric surgeon. Assessment: stable s/p laparoscopic sleeve gastrectomy
[2022-02-24] MEDS: Famotidine/PF 20 MG/2 ML VIAL IVPUSH ×2 (13:21→20:17)
[2022-02-24] MEDS: Lactated Ringers 1,000 ML 100 ML IVCONT ×2 (13:22→22:36)
[2022-02-24] MEDS: HYDROmorphone HCl 0.5 MG/0.5 ML SYRINGE 0.25 MG IVPUSH ×2 (13:40→14:07)
[2022-02-24 14:15] LABS: Hematocrit 37.4 % (37.0-47.0); Hemoglobin 12.9 g/dl (12.0-16.0)
[2022-02-24 14:28] LABS: Anion Gap 13 (12-20); Blood Urea Nitrogen 6 mg/dL (9-16); Calcium 8.6 mg/dL (8.4-10.2); Carbon Dioxide 20 mmol/L (22-29); Chloride 109 mmol/L (96-108); Creatinine Clr Calc Pharmacy 141.6; Estimated Glomerular Filt Rate > 60; Glucose Random 125 mg/dL (60-115); Potassium 4.1 mmol/L (3.3-5.1); Sodium 138 mmol/L (135-145)
[2022-02-24] MEDS: ondansetron HCL 4 MG/2 ML VIAL IVPUSH ×2 (16:11→23:49)
[2022-02-24] MEDS: 0.9 % Sodium Chloride Flush 3 ML SYRINGE IVFLUSH ×2 (16:11→20:17)
[2022-02-25] VITALS: BP 153/93; PULSE 56; RESP 18; TEMP 36.6; O2SAT 99
[2022-02-25 04:00] VITALS: BP 157/88; PULSE 68; RESP 18; TEMP 36.7; O2SAT 98
[2022-02-25 06:04] LABS: MANUAL DIFF FLAG NO
[2022-02-25 06:12] LABS: Basophils Percent Auto 0.1 % (0-2); Hematocrit 37.5 % (37.0-47.0); Hemoglobin 12.6 g/dl (12.0-16.0); Imm Gran Abs Auto 0.04 X10*3/uL (0.00-0.03); Imm Gran Pct Auto 0.3 % (0.0-0.4); Lymphocytes Percent Auto 8.6 % (20-40); Mean Corpuscular HGB Conc 33.6 g/dl (31.0-35.0); Mean Corpuscular Hemoglobin 29.4 pg (27.0-33.0); Mean Corpuscular Volume 87.4 fL (80.0-98.0); Mean Platelet Volume 11.4 fL (9.4-12.3); Monocytes Absolute Auto 0.8 X10*3/uL (0.1-1.2); Platelet Count 223 X10*3/uL (160-400); Red Blood Count 4.29 X10*6/uL (4.20-5.50); Red Cell Distribution Width 12.9 % (11.0-16.0); White Blood Count 11.9 X10*3/uL (4.8-10.8)
[2022-02-25 06:27] LABS: Anion Gap 13 (12-20); Blood Urea Nitrogen 6 mg/dL (9-16); Calcium 9.3 mg/dL (8.4-10.2); Carbon Dioxide 24 mmol/L (22-29); Chloride 105 mmol/L (96-108); Creatinine Clr Calc Pharmacy 149.7; Estimated Glomerular Filt Rate > 60; Glucose Random 94 mg/dL (60-115); Sodium 138 mmol/L (135-145)
[2022-02-25 07:33] VITALS: BP 144/80; PULSE 53; RESP 18; TEMP 36.4; O2SAT 100
[2022-02-25] MEDS: Famotidine/PF 20 MG/2 ML VIAL IVPUSH (08:18)
[2022-02-25] MEDS: ondansetron HCL 4 MG/2 ML VIAL IVPUSH (08:18)
--- NOTE | 2022-02-25 09:23 | MHC.CM.PN ---
PATIENT IS FULLY INDEPENDENT WITH ALL ADLS NO DME OR VNA, AND NONE ARE NEEDED. SHE HAS BEEN VACCINATED AND A BOOSTER AGAINST COVID-19 PFIZER BRAND SHE DOES NOT RECALL THE DATES. SHE HAS TRANSPORT HOME. NO HCP ON FILE CONTACT CARD LEFT WITH PATIENT IN THE EVENT SHE CHOOSES TO COMPLETE ONE PRIOR TO LEAVING. HER TRANSPORTATION CONTACT IS IN ROOM
--- NOTE | 2022-02-25 10:11 | HO.POSTANES ---
Post Anesthesia Evaluation Post Anesthesia Evaluation Vital Signs: Vital Signs Temp Pulse Resp BP Pulse Ox 02/25/22 07:33 97.5 F 53 18 144/80 H 100 02/25/22 04:00 98.1 F 68 18 157/88 H 98 02/25/22 00:00 97.8 F 56 18 153/93 H 99 Mental Status: Awake Pain Control: Satisfactory Nausea/Vomiting: None Hydration: Adequate Anesthesia-Related Issues: No Anes. Related Issues
== END 2022-02-25 10:52 | disposition home or self-care (01) | DRG 403 ==
LOC: HO.SSSA 13:13 → HO.S3 13:44
PROVIDERS: Nurse Practitioner; Physician Assistant Surgical; Admitting Provider Surgery; PCP Family Medicine; Visit Provider Surgery
PROC: 0DB64Z3 Excision of Stomach, Percutaneous Endoscopic Approach, Vertical (ICD-10-PCS; CPT 43845; principal; 2022-02-24 10:10)
DX: E66.01 Morbid (severe) obesity due to excess calories (principal); K76.0 Fatty (change of) liver, not elsewhere classified; F32.A Depression, unspecified; I45.10 Unspecified right bundle-branch block; K21.9 Gastro-esophageal reflux disease without esophagitis; F41.9 Anxiety disorder, unspecified; R51.9 Headache, unspecified; M54.9 Dorsalgia, unspecified; Z68.41 Body mass index [BMI] 40.0-44.9, adult; Z20.822 Contact with and (suspected) exposure to COVID-19; Z79.899 Other long term (current) drug therapy
CPT/HCPCS: 36415; 80048; 80053; 80061; 81025; 83036; 83525; 84443; 85014; 85018; 85025; 85610; 85730; 86140; 86850; 86900; 86901; 87635; 88307; 88342; A4649; J0131; J0690; J1100; J1170; J2250; J2370; J2405; J2550; J3010

== ENCOUNTER → 2022-03-01 14:11 | Outpatient (BNVA) | payer OTHER, SELFPAY | PROVIDERS: PCP Family Medicine; Referring Provider Family Medicine; Visit Provider Surgery | DX: E66.01 Morbid (severe) obesity due to excess calories (principal); Z90.3 Acquired absence of stomach [part of]; Z68.41 Body mass index [BMI] 40.0-44.9, adult | CPT/HCPCS: 99212 ==

== ENCOUNTER → 2022-03-23 08:00 | Outpatient (BNVA) | payer OTHER, SELFPAY | PROVIDERS: PCP Family Medicine; Visit Provider Dietitian, Registered | DX: E66.01 Morbid (severe) obesity due to excess calories (principal); Z68.41 Body mass index [BMI] 40.0-44.9, adult | CPT/HCPCS: 97803 ==

== ENCOUNTER → 2022-04-08 08:15 | Outpatient (BNVA) | payer OTHER, SELFPAY | PROVIDERS: PCP Family Medicine; Referring Provider Surgery; Visit Provider Dietitian, Registered | DX: E66.01 Morbid (severe) obesity due to excess calories (principal) | CPT/HCPCS: 97803 ==

== ENCOUNTER → 2022-04-28 13:49 | Outpatient (BNVA) | payer OTHER, SELFPAY | PROVIDERS: PCP Family Medicine; Referring Provider Surgery; Visit Provider Dietitian, Registered | DX: E66.9 Obesity, unspecified (principal); Z68.39 Body mass index [BMI] 39.0-39.9, adult | CPT/HCPCS: 97803 ==

== ENCOUNTER → 2022-05-12 10:45 | Outpatient (BNVA) | payer OTHER, SELFPAY | PROVIDERS: PCP Family Medicine; Visit Provider Counselor Mental Health | DX: F33.1 Major depressive disorder, recurrent, moderate (principal); F41.1 Generalized anxiety disorder; Z90.3 Acquired absence of stomach [part of] | CPT/HCPCS: 90834 ==

== ENCOUNTER → 2022-05-17 15:48 | Outpatient (BNVA) | payer OTHER, SELFPAY | PROVIDERS: PCP Family Medicine; Referring Provider Surgery; Visit Provider Dietitian, Registered | DX: E66.9 Obesity, unspecified (principal); Z68.37 Body mass index [BMI] 37.0-37.9, adult; Z98.84 Bariatric surgery status; Z71.3 Dietary counseling and surveillance | CPT/HCPCS: 97803 ==

== ENCOUNTER → 2022-06-06 15:30 | Outpatient (BNVA) | payer OTHER, SELFPAY | PROVIDERS: PCP Family Medicine; Referring Provider Surgery; Visit Provider Dietitian, Registered | DX: E66.01 Morbid (severe) obesity due to excess calories (principal); Z68.36 Body mass index [BMI] 36.0-36.9, adult; Z98.84 Bariatric surgery status; Z71.3 Dietary counseling and surveillance | CPT/HCPCS: 97803 ==

== ENCOUNTER → 2022-07-06 15:24 | Outpatient (BNVA) | payer OTHER, SELFPAY | PROVIDERS: PCP Family Medicine; Referring Provider Surgery; Visit Provider Dietitian, Registered | DX: E66.9 Obesity, unspecified (principal); Z68.35 Body mass index [BMI] 35.0-35.9, adult; Z98.84 Bariatric surgery status; Z71.3 Dietary counseling and surveillance | CPT/HCPCS: 97803 ==

== ENCOUNTER → 2022-07-27 15:14 | Outpatient (BNVA) | payer OTHER, SELFPAY | PROVIDERS: PCP Family Medicine; Referring Provider Surgery; Visit Provider Dietitian, Registered | DX: E66.9 Obesity, unspecified (principal); Z68.34 Body mass index [BMI] 34.0-34.9, adult; Z98.84 Bariatric surgery status; Z71.3 Dietary counseling and surveillance | CPT/HCPCS: 97803 ==

== ENCOUNTER → 2022-08-05 15:28 | Outpatient (BNVA) | payer OTHER, SELFPAY | PROVIDERS: PCP Family Medicine; Visit Provider Physician Assistant Surgical | DX: E66.9 Obesity, unspecified (principal); Z68.34 Body mass index [BMI] 34.0-34.9, adult; Z98.84 Bariatric surgery status; Z90.3 Acquired absence of stomach [part of] | CPT/HCPCS: 99212 ==

== ENCOUNTER 2022-08-09 09:03 | Outpatient (REF) | payer OTHER, SELFPAY ==
[2022-08-09 09:19] LABS: MANUAL DIFF FLAG NO
[2022-08-09 09:34] LABS: Basophils Percent Auto 0.8 % (0-2); Eosinophils Percent Auto 0.6 % (0-4); Hematocrit 38.1 % (37.0-47.0); Hemoglobin 13.1 g/dl (12.0-16.0); Imm Gran Abs Auto 0.02 X10*3/uL (0.00-0.03); Imm Gran Pct Auto 0.4 % (0.0-0.4); Lymphocytes Absolute Auto 1.6 X10*3/uL (1.2-4.9); Lymphocytes Percent Auto 31.4 % (20-40); Mean Corpuscular HGB Conc 34.4 g/dl (31.0-35.0); Mean Corpuscular Hemoglobin 30.1 pg (27.0-33.0); Mean Corpuscular Volume 87.6 fL (80.0-98.0); Mean Platelet Volume 11.1 fL (9.4-12.3); Monocytes Absolute Auto 0.4 X10*3/uL (0.1-1.2); Monocytes Percent Auto 7.3 % (2-11); Neutrophils Percent Auto 59.5 % (45-73); Platelet Count 224 X10*3/uL (160-400); Red Blood Count 4.35 X10*6/uL (4.20-5.50); Red Cell Distribution Width 13.3 % (11.0-16.0); White Blood Count 5.1 X10*3/uL (4.8-10.8)
[2022-08-09 09:54] LABS: Estimated Average Glucose 85 mg/dL; Hemoglobin A1c % 4.6 %
[2022-08-09 10:06] LABS: Alanine Aminotransferase 11 U/L (0-31); Albumin Level 4.2 g/dL (3.5-5.0); Alkaline Phosphatase 41 U/L (39-117); Anion Gap 13 (12-20); Aspartate Amino Transferase 15 U/L (5-31); Bilirubin Total 0.6 mg/dL (0.0-1.0); Blood Urea Nitrogen 11 mg/dL (9-16); C Reactive Protein 0.16 mg/dL (< or = 0.50); Calcium 9.4 mg/dL (8.4-10.2); Carbon Dioxide 23 mmol/L (22-29); Chloride 108 mmol/L (96-108); Cholesterol 204 mg/dL; Estimated Glomerular Filt Rate > 60; Glucose Random 90 mg/dL (60-115); HDL Cholesterol 42 mg/dL; Iron 92 mcg/dL (30-160); LDL Cholesterol Calculated 142 mg/dl; Percent Iron Saturation 33 % (15-50); Potassium 3.9 mmol/L (3.3-5.1); Sodium 140 mmol/L (135-145); Total Iron Binding Capacity 279 mcg/dL (228-428); Total Protein 7.2 g/dL (6.5-8.0); Triglycerides 104 mg/dL; Unsaturated Iron Binding 187 ug/dL
[2022-08-09 10:23] LABS: Ferritin 26 ng/mL (10-122); TSH reflex Free T4 1.07 uIU/mL (0.32-4.0); Vitamin D 25-OH Total 61.1 ng/mL (>30)
[2022-08-09 10:56] LABS: Insulin 6 uU/mL (2-29)
[2022-08-09 11:02] LABS: Folate > 20.0 ng/mL (> or = 4.0); Vitamin B12 594 pg/mL (200-900)
[2022-08-11 14:02] LABS: Calcium (PTHI) 9.4 mg/dL (8.6-10.2); PTHI 31 pg/mL (16-77)
[2022-08-12 16:12] LABS: Zinc 68 mcg/dL (60-130)
[2022-08-13 20:52] LABS: Vitamin A 40 mcg/dL (38-98)
[2022-08-14 09:22] LABS: Vitamin B1 17 nmol/L (8-30)
== END 2022-08-09 09:04 | disposition home or self-care (01) ==
LOC: HO.LAB 09:03
PROVIDERS: PCP Family Medicine; Visit Provider Physician Assistant Surgical
DX: Z90.3 Acquired absence of stomach [part of] (principal)
CPT/HCPCS: 36415; 80053; 80061; 82306; 82607; 82728; 82746; 83036; 83525; 83540; 83970; 84425; 84443; 84590; 84630; 85025; 86140

== ENCOUNTER → 2022-09-26 15:32 | Outpatient (BNVA) | payer OTHER, SELFPAY | PROVIDERS: PCP Family Medicine; Visit Provider Dietitian, Registered | DX: E66.9 Obesity, unspecified (principal); Z68.32 Body mass index [BMI] 32.0-32.9, adult | CPT/HCPCS: 97803 ==

== ENCOUNTER → 2022-11-24 15:16 | Outpatient (BNVA) | payer OTHER, SELFPAY | PROVIDERS: PCP Family Medicine; Visit Provider Dietitian, Registered | DX: E66.9 Obesity, unspecified (principal); Z68.32 Body mass index [BMI] 32.0-32.9, adult | CPT/HCPCS: 97803 ==

== ENCOUNTER → 2022-12-26 15:32 | Outpatient (BNVA) | payer OTHER, SELFPAY | PROVIDERS: PCP Family Medicine; Visit Provider Dietitian, Registered | DX: E66.9 Obesity, unspecified (principal); Z68.31 Body mass index [BMI] 31.0-31.9, adult; Z98.84 Bariatric surgery status; Z71.3 Dietary counseling and surveillance | CPT/HCPCS: 97803 ==

== ENCOUNTER → 2022-12-28 11:15 | Outpatient (BNVA) | payer OTHER, SELFPAY | PROVIDERS: PCP Family Medicine; Visit Provider Counselor Mental Health | DX: F41.1 Generalized anxiety disorder (principal); F33.1 Major depressive disorder, recurrent, moderate; Z90.3 Acquired absence of stomach [part of] | CPT/HCPCS: 90834 ==

== ENCOUNTER 2023-01-18 23:26 | Emergency (ER) | payer OTHER, SELFPAY ==
[2023-01-18 23:36] VITALS: BP 144/96; PULSE 55; RESP 16; TEMP 36.6; O2SAT 100; BMI 29.7
--- OUTSIDE RECORDS SUMMARY | 2023-01-19 00:01 | XMS_ITS | Continuity of Care Document ---
:[address] [facility] Address [address] [place] [address]- Care Team Providers Name Role Phone Jenny CHRISTINA, Arpit Solano Primary Care Physician [place] [facility] [place] - 09/04/21 [facility] [address] [place] [address]- Allergies, Adverse Reactions, Alerts Substance Reaction Severity Status Mold Active Immunizations Given and Recorded Vaccine Date Status Refusal Reason SARS-CoV-2 (COVID-19) mRNA BNT-162b2 vac 01/19/21 Recorde d SARS-CoV-2 (COVID-19) mRNA BNT-162b2 vac 12/29/20 Recorde d tetanus/diphtheria/pertussis, acel(Tdap) 09/27/19 Recorde d Varicella Virus Vaccine 09/24/19 Recorded Measles/Mumps/Rubella Virus Vaccine 09/24/19 Recorded hepatitis B adult vaccine 09/24/19 Recorded hepatitis B adult vaccine 01/27/17 Recorded hepatitis B adult vaccine 12/30/16 Recorded influenza virus vaccine, inactivated 07/30/19 Recorded Problem List Condition Effective Dates Status Health Status Informant Anxiety(Confirmed) Active Dizziness(Confirmed) Active Headache(Confirmed) Active PMDD (premenstrual dysphoric Active disorder)(Confirmed) Tension headache d/t Active cervicalgia(Confirmed) Social History Social History Type Response Smoking Status Never (less than 100 in life time) entered on: 03/04/19 Sex
--- OUTSIDE RECORDS SUMMARY | 2023-01-19 00:01 | XMS_ITS | Continuity of Care Document ---
:1995 Author Organization [facility] Address [address] [place] [address]- Care Team Providers Name Role Phone Jenny CHRISTINA, Arpit Solano Primary Care Physician En[place] [facility] [place] 11[place]01[place]21 - 12/01/21 [facility] [address] [place] [address]- Attending Physician: Julienne Hudson Admitting Physician: Julienne Hudson Referring Physician: AdmtrJuilenne Allergies, Adverse Reactions, Alerts Substance Reaction Severity [...]
--- OUTSIDE RECORDS SUMMARY | 2023-01-19 00:01 | XMS_ITS | Continuity of Care Document ---
:1995 Author Organization [facility] Address [address] [place] [address], [address] [address]- Care Team Providers Name Role Phone Arpit Alvarado MD Primary Care Physician Encounter 12/01/20 - 12/08/20 [facility] [address], [address] [place] [address]- Attending Physician: Nahun Oliveros Admitting Physician: Nahun Oliveros Referring Physician: Nahun Oliveros Allergies, Adverse Reactions, Alerts Substance Reaction Severity Status NKA Active Medications Flonase 50 mcg/inh nasal spray 2 sprays, Nares, Both, Daily in AM, # 16 Gm, 1 Refills, Maintenance, 12/01/20 15:46:00 EST, [place], [id number], 2 sprays Nares, Both Daily in AM, 162, cm, 12/01/20 14:36:00 EST, Height Start Date: 12/01/20 Status: Ordered Problem List Condition Effective Dates Status Health Status Informant Anxiety(Confirmed) Active COVID-19(Confirmed) Active Dizziness(Confirmed) Active Headache(Confirmed) Active Results Radiology Reports Exam Date Time Procedure Performing Provider Status 12/01/20 5:10 PM Chest 2 Views Frontal and Lat Mitch Elam (Verified) Notes:(Chest 2 Views Frontal and Lat) Reason For Exam: Shortness of Breath COVID POSITIVERESULT: Chest 2 Views Frontal and Lat Chest 2 Views Frontal and Lat Reason: Shortness of Breath COVID POSITIVE COMPARISON: None. FINDINGS: LINES AND TUBES: None. LUNGS AND PLEURA: Clear lungs. Normal pulmonary vascularity. No pleural effusion. No pneumothorax. HEART, MEDIASTINUM AND MARIANA: Heart is normal in size. Normal upper mediastinal and hilar contour. BONES AND SOFT TISSUES: No acute abnormality. IMPRESSION: No acute abnormality. WSN: [id number] Ordering Physician: Nahun Shaw Dictated By: Alonzo Machado MD Dictated Date/Time: 12/01/20 5:13 pm Reviewed By: Alonzo Machado MD Signed By: Alonzo Machado MD Signed Date/Time: 12/01/20 5:13 pm Transcribed By: LISET Transcribed Date/Time: 12/01/20 5:13 pm Social History Social History Type Response Smoking Status Never (less than 100 in life time) entered on: 03/04/19 Sex
--- OUTSIDE RECORDS SUMMARY | 2023-01-19 00:02 | XMS_ITS | Continuity of Care Document ---
:1995 Author Organization [facility] Address [address] [place] [address]- Care Team Providers Name Role Phone Arpit Alvarado MD Primary Care [id number] - 04/01/22 [facility] [address] [place] [address]- Attending Physician: Arpit Alvarado MD Referring Physician: Good CHRISTINA , Ra Allergies, Adverse Reactions, Alerts Substance Reaction Severity Status Mold Active Immunizations Given and Recorded Vaccine Date Status Refusal Reason influenza virus vaccine, inactivated 09/21/21 Recorded influenza virus vaccine, inactivated 07/30/19 Recorded SARS-CoV-2 (COVID-19) mRNA BNT-162b2 vac 01/19/21 Recorde d SARS-CoV-2 (COVID-19) mRNA BNT-162b2 vac 12/29/20 Recorde d tetanus/diphtheria/pertussis, acel(Tdap) 09/27/19 Recorde d Varicella Virus Vaccine 09/24/19 Recorded Measles/Mumps/Rubella Virus Vaccine 09/24/19 Recorded hepatitis B adult vaccine 09/24/19 Recorded hepatitis B adult vaccine 01/27/17 Recorded hepatitis B adult vaccine 12/30/16 Recorded Medications Calcium 600 +D By Mouth, 0 Refills, Maintenance, 03/25/22 10:18:00 EDT, Partial fill upon patient request if the prescription is for a schedule II opioid drug. Start Date: 03/25/22 Status: OrderedMultivitamin Daily, 0 Refills, Maintenance, 03/25/22 10:19:00 EDT, Partial fill upon patient request if the prescription is for a schedule II opioid drug. Start Date: 03/25/22 Status: OrderedPantoprazole Daily, 0 Refills, Maintenance, 03/25/22 10:22:00 EDT Start Date: 03/25/22 Status: OrderedSucralfate = 1 Gm, By Mouth, 3 times a day before meals and bedtime, LIQUID, 0 Refills, Maintenance, 03/25/22 10:18:00 EDT, Partial fill upon patient request if the prescription is for a schedule II opioid drug. Start Date: 03/25/22 Status: Ordered Problem List Condition Effective Dates Status Health Status Informant Anxiety(Confirmed) Active Dizziness(Confirmed) Active Headache(Confirmed) Active PMDD (premenstrual dysphoric Active disorder)(Confirmed) Severe obesity(Confirmed) Active Tension headache d/t Active cervicalgia(Confirmed) Vital Signs Most recent to oldest [Reference Range]: 1 Height 162 cm (03/25/22 10:14 AM) Weight 107.1 kg (03/25/22 10:14 AM) Pulse Rate [55-90 bpm] 62 bpm (03/25/22 10:14 AM) Body Mass Index [18.5-24.99] 40.81 *>HHI* (03/25/22 10:14 AM) Blood Pressure [90-138/55-84 mm Hg] 116/81 mm Hg (03/25/22 10:14 AM) Temperature [96.8-100.4 DegF] 98.0 DegF (03/25/22 10:14 AM) Blood pressure sites Arm, left (03/25/22 10:14 AM) Temperature Route Oral (03/25/22 10:14 AM) Weight Obtained Via Standing scale (03/25/22 10:14 AM) Social History Social History Type Response Smoking Status Never (less than 100 in life time) entered on: 03/04/19 Sex
--- OUTSIDE RECORDS SUMMARY | 2023-01-19 00:02 | XMS_ITS | Continuity of Care Document ---
:1995 Author Organization [facility] Adult Address [address] [place] [address]- Care Team Providers Name Role Phone Arpit Alvarado MD Primary Care Physician [place] [facility] [place] [facility] [id number] Date(s): 07/16/21 - 10/09/21 [facility] Adult [address] [place] [address]- Attending Physician: Arpit Alvarado MD Allergies, Adverse Reactions, Alerts Substance Reaction Severity [...]
--- OUTSIDE RECORDS SUMMARY | 2023-01-19 00:02 | XMS_ITS | Continuity of Care Document ---
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, [place] Allergies, Adverse Reactions, Alerts Substance Reaction Severity Status NKA Active Medications Flonase 50 mcg/inh nasal spray 2 sprays, Nares, Both, Daily in AM, # 16 Gm, 1 Refills, Maintenance, 12/01/20 15:46:00 EST, [place], [id number], 2 sprays Nares, Both Daily in AM, 162, cm, 12/01/20 14:36:00 EST, Height Start Date: 12/01/20 Status: Ordered Problem List Condition Effective Dates Status Health Status Informant Anxiety(Confirmed) Active COVID-19(Confirmed) Active Dizziness(Confirmed) Active Headache(Confirmed) Active Diagnosis Diagnosis Type Effective Dates Health Status Clinical Serv ice Informant COVID-19 Discharge 12/01/20 Diagnosis Vital Signs Most recent to oldest [Reference Range]: 1 2 Height 162 cm 162 cm (12/01/20 5:29 PM) (12/01/20 5:14 PM) Oxygen Saturation [94-100 %] 99 % (12/01/20 5:14 PM) Pulse Rate [55-90 bpm] 81 bpm (12/01/20 5:14 PM) Blood Pressure [90-138/55-84 mm Hg] 158/109 mm Hg *H* (12/01/20 5:14 PM) Respiratory Rate [16-30 br/min] 25 br/min (12/01/20 5:14 PM) Temperature [96.8-100.4 DegF] 96.5 DegF *L* (12/01/20 5:29 PM) Mode of Delivery (Oxygen) Room air (12/01/20 5:14 PM) Blood pressure sites Arm, left (12/01/20 5:14 PM) Temperature Route Temporal Femoral (12/01/20 5:29 PM) (12/01/20 5:14 PM) Social History Social History Type Response Smoking Status Never (less than 100 in life time) entered on: 03/04/19 Sex
--- OUTSIDE RECORDS SUMMARY | 2023-01-19 00:02 | XMS_ITS | Continuity of Care Document ---
:1995 Author Organization [facility] Address [address] [place] [address]- Care Team Providers Name Role Phone Jenny CHRISTINA, Arpit Solano Primary Care Physician En[facility] Date(s): 01/19/22 - 02/19/22 [facility] [address] [place] [address]- Attending Physician: Rose Cheema Allergies, Adverse Reactions, Alerts Substance Reaction Severity [...] Recorded hepatitis B adult vaccine 12/30/16 Recorded Problem List Condition Effective Dates Status Health Status Informant Anxiety(Confirmed) Active Dizziness(Confirmed) Active Headache(Confirmed) Active PMDD (premenstrual dysphoric Active disorder)(Confirmed) Tension headache d/t Active cervicalgia(Confirmed) Social History Social History Type Response Smoking Status Never (less than 100 in life time) entered on: 03/04/19 Sex
--- OUTSIDE RECORDS SUMMARY | 2023-01-19 00:02 | XMS_ITS | Continuity of Care Document ---
:1995 Author Organization [facility] Address [address] [place] [address]- Care Team Providers Name Role Phone Jenny CHRISTINA, Arpit Solano Primary Care Physician [place] [facility] [place] 01/19/22 - 02/18/22 [facility] [address] [place] [address]- Allergies, Adverse Reactions, Alerts Substance Reaction Severity [...]
--- OUTSIDE RECORDS SUMMARY | 2023-01-19 00:02 | XMS_ITS | Continuity of Care Document ---
:1995 Author Organization [facility] Adult Address [address] [place] [address]- Care Team Providers Name Role Phone Jenny CHRISTINA, Arpit Solano Primary Care Physician En[place] [facility] Date(s): 03/08/21 - 04/07/21 [facility] Adult [address] [place] [address]- Attending Physician: Admtr, Ar8 Admitting Physician: Admtr, Ar8 Referring Physician: Admtr, Ar8 Allergies, Adverse Reactions, Alerts Substance Reaction Severity Status NKA Active Medications Flonase 50 mcg/inh nasal spray 2 sprays, Nares, Both, Daily in AM, # 16 Gm, 1 Refills, Maintenance, 12/01/20 15:46:00 EST, [place], [id number], 2 sprays Nares, Both Daily in AM, 162, cm, 12/01/20 14:36:00 EST, Height Start Date: 12/01/20 Status: OrderedIbuprofen Refills 0, Maintenance, 03/04/21 9:09:00 EDT, Partial fill upon patient request if the prescription is for a schedule II opioid drug. Start Date: 03/04/21 Status: Orderedsertraline 25 mg oral tablet 1 tablet = 25 mg, By Mouth, Daily, # 30 tablet, 2 Refills, Maintenance, 02/08/21 16:43:00 EDT, [place], [id number], Partial fill upon patient request if the prescription is for a schedule II opioid drug., 162, cm, 12/01/20 17:29:00 EST, Height Start Date: 02/08/21 Status: Ordered Problem List Condition Effective Dates Status Health Status Informant Anxiety(Confirmed) Active Dizziness(Confirmed) Active Headache(Confirmed) Active PMDD (premenstrual dysphoric Active disorder)(Confirmed) Tension headache d/t Active cervicalgia(Confirmed) Social History Social History Type Response Smoking Status Never (less than 100 in life time) entered on: 03/04/19 Sex
--- OUTSIDE RECORDS SUMMARY | 2023-01-19 00:02 | XMS_ITS | Continuity of Care Document ---
:1995 Author Organization [facility] Address [address] [place] [address]- Care Team Providers Name Role Phone Jenny CHRISTINA, Arpit Solano Primary Care Physician [place] [facility] [place] 07[place]20 - 08/27/20 [facility] [address] [place] [address]- [facility] Allergies, Adverse Reactions, Alerts Substance Reaction Severity Status NKA Active Medications Claritin 10 mg oral tablet 10 mg, 1, tablet, By Mouth, Daily, # 30 tablet, Refills 1, Tot. Refills 1, Maintenance, 07/30/19 15:06:26 EDT, Route to Pharmacy Electronically, [id number], [id number] Start Date: 07/30/19 Status: OrderedFlonase 50 mcg/inh nasal spray 2 sprays, Nares, Both, Daily in AM, # 16 Gm, 1 Refills, Maintenance, 07/30/19 15:06:27 EDT, [place], 2sprays Nares, Both Daily in AM Start Date: 07/30/19 Status: Ordered Problem List Condition Effective Dates Status Health Status Informant Anxiety(Confirmed) Active Dizziness(Confirmed) Active Headache(Confirmed) Active Social History Social History Type Response Smoking Status Never (less than 100 in life time) entered on: 03/04/19 Sex
--- OUTSIDE RECORDS SUMMARY | 2023-01-19 00:02 | XMS_ITS | Continuity of Care Document ---
:1995 Author Organization [facility] Adult Address [address] [place] [address]- Care Team Providers Name Role Phone Jenny CHRISTINA, Arpit Solano Primary Care Physician [place] [facility] Date(s): 11/23/20 - 12/23/20 [facility] [address] [place] [address]- Allergies, Adverse Reactions, Alerts Substance Reaction Severity Status NKA Active Medications Flonase 50 mcg/inh nasal spray 2 sprays, Nares, Both, Daily in AM, # 16 Gm, 1 Refills, Maintenance, 12/01/20 15:46:00 EST, [place], [id number], 2 sprays Nares, Both Daily in AM, 162, cm, 12/01/20 14:36:00 EST, Height Start Date: 12/01/20 Status: Ordered Problem List Condition Effective Dates Status Health Status Informant Anxiety(Confirmed) Active Dizziness(Confirmed) Active Headache(Confirmed) Active Social History Social History Type Response Smoking Status Never (less than 100 in life time) entered on: 03/04/19 Sex
--- OUTSIDE RECORDS SUMMARY | 2023-01-19 00:02 | XMS_ITS | Continuity of Care Document ---
:1995 Author Organization [facility] Address [address] [place] [address]- Care Team Providers Name Role Phone Arpit Alvarado MD Primary Care Physician [id number] Date(s): 03/[facility] - 03/17/[address] [address] Discharge Disposition: A-D/C Home Attending Physician: Arpit Alvarado MD Admitting Physician: Arpit Alvarado MD Referring Physician: Arpit Alvarado MD Allergies, Adverse Reactions, Alerts Substance Reaction Severity Status NKA Active Medications Flonase 50 mcg/inh nasal spray 2 sprays, Nares, Both, Daily in AM, # 16 Gm, 1 Refills, Maintenance, 12/01/20 15:46:00 EST, [place], [id number], 2 sprays Nares, Both Daily [...]
--- OUTSIDE RECORDS SUMMARY | 2023-01-19 00:02 | XMS_ITS | Continuity of Care Document ---
:1995 Author Organization [facility] Address [address] [place] [address]- Care Team Providers Name Role Phone Jenny CHRISTINA, Arpit Solano Primary Care Physician En[facility] Date(s): 12/25/19 - 01/04/20 [facility] [address] [place] [address]- [facility] Attending Physician: AdmNiranjan [email or web address] Admitting Physician: Admtr, Ar8 Referring Physician: Admtr, Ar8 Allergies, Adverse Reactions, Alerts Substance Reaction Severity Status NKA Active Medications Claritin 10 mg oral tablet 10 mg, 1, tablet, By Mouth, Daily, # 30 tablet, Refills 1, Tot. Refills 1, Maintenance, 07/30/19 15:06:26 EDT, Route to Pharmacy Electronically, [id number], [facility]/pharmacy #[id number] Start Date: 07/30/19 Status: Orderedcyclobenzaprine 10 mg oral tablet 10 mg, 1, tablet, By Mouth, Daily, PRN, # 15 tablet, Refills 1, Tot. Refills 1, Acute 02/23/20 14:37:00 EDT, as needed for muscle spasm, 12/25/19 14:37:00 EST, Route to Pharmacy Electronically, [facility]/pharmacy #[id number], 162, cm, 12/25/19 13:52:00 EST, Height Start Date: 12/25/19 Stop Date: 02/23/20 Status: OrderedFlonase 50 mcg/inh nasal spray 2 sprays, Nares, Both, Daily in AM, # 16 Gm, 1 Refills, Maintenance, 07/30/19 15:06:27 EDT, [place], 2sprays Nares, Both Daily in AM Start Date: 07/30/19 Status: Ordered Problem List Condition Effective Dates Status Health Status Informant Anxiety(Confirmed) Active Dizziness(Confirmed) Active Headache(Confirmed) Active Social History Social History Type Response Smoking Status Never (less than 100 in life time) entered on: 03/04/19 Sex
--- OUTSIDE RECORDS SUMMARY | 2023-01-19 00:03 | XMS_ITS | Continuity of Care Document ---
:1995 Author Organization [facility] Adult Address [address] [place] [address]- Care Team Providers Name Role Phone Jenny CHRISTINA, Arpit Solano Primary Care Physician En[place] [facility] Date(s): 01/20/22 - 02/19/22 [facility] Adult [address] [place] [address]- Attending Physician: Julienne Hudson Admitting Physician: Julienne Hudson Referring Physician: AdmtrJulienne Allergies, Adverse Reactions, Alerts Substance Reaction Severity [...]
--- OUTSIDE RECORDS SUMMARY | 2023-01-19 00:03 | XMS_ITS | Continuity of Care Document ---
:1995 Author Organization [facility] Address [address] [place] [address]- Care Team Providers Name Role Phone Jenny CHRISTINA, Arpit Solano Primary Care Physician [place] [facility] [place] 05/06/20 - 06/05/20 [facility] [address] [place] [address]- [facility] Attending Physician: Julienne Hudson Admitting Physician: Julienne Hudson Referring Physician: AdmtrJulienne Allergies, Adverse Reactions, Alerts Substance Reaction Severity Status NKA Active Medications Claritin 10 mg oral tablet 10 mg, 1, tablet, By Mouth, Daily, # 30 tablet, Refills 1, Tot. Refills 1, Maintenance, 07/30/19 15:06:26 EDT, Route to Pharmacy Electronically, [id number], [facility]/pharmacy #[id number] Start Date: 07/30/19 Status: OrderedFlonase 50 mcg/inh nasal spray 2 sprays, Nares, Both, Daily in AM, # 16 Gm, 1 Refills, Maintenance, 07/30/19 15:06:27 EDT, [place], 2sprays Nares, Both Daily in AM Start Date: 07/30/19 Status: Ordered Problem List Condition Effective Dates Status Health Status Informant Anxiety(Confirmed) Active Dizziness(Confirmed) Active Headache(Confirmed) Active Social History Social History Type Response Smoking Status Never (less than 100 in life time) entered on: 03/04/19 Sex
--- OUTSIDE RECORDS SUMMARY | 2023-01-19 00:03 | XMS_ITS | Continuity of Care Document ---
:1995 Author Organization [facility] Address [address] [place] [address]- Care Team Providers Name Role Phone Jenny CHRISTINA, Arpit Solano Primary Care Physician [id number] Date(s[facility] 12/01/20 - 12/31/20 [facility] [address] [place] [address]- Attending Physician: Julienne Hudson Admitting Physician: AdmtrJulienne Referring Physician: Admtr ArNichole Allergies, Adverse Reactions, Alerts Substance Reaction Severity Status NKA Active Medications Flonase 50 mcg/inh nasal spray 2 sprays, Nares, Both, Daily in AM, # 16 Gm, 1 Refills, Maintenance, 12/01/20 15:46:00 EST, [place], [id number], 2 sprays Nares, Both Daily in AM, 162, cm, 12/01/20 14:36:00 EST, Height Start Date: 12/01/20 Status: Ordered Problem List Condition Effective Dates Status Health Status Informant Anxiety(Confirmed) Active Dizziness(Confirmed) Active Headache(Confirmed) Active Social History Social History Type Response Smoking Status Never (less than 100 in life time) entered on: 03/04/19 Sex
--- OUTSIDE RECORDS SUMMARY | 2023-01-19 00:03 | XMS_ITS | Continuity of Care Document ---
:1995 Author Organization [facility] Address [address] [place] [address]- Care Team Providers Name Role Phone Arpit Alvarado MD Primary Care Physician [id number]/01[facility]21 - 11/08/21 [facility] [address] [place] [address]- Attending Physician: Arpit Alvarado MD Allergies, Adverse [...]
--- OUTSIDE RECORDS SUMMARY | 2023-01-19 00:03 | XMS_ITS | Continuity of Care Document ---
:1995 Author Organization [facility] Adult Address [address] [place] [address]- Care Team Providers Name Role Phone Jenny CHRISTINA, Arpit Solano Primary Care Physician En[facility] Date(s): 06/23/20 - 07/23/20 [facility] [address] [place] [address]- [facility] Allergies, Adverse Reactions, Alerts Substance Reaction Severity Status NKA Active Medications Claritin 10 mg oral tablet 10 mg, 1, tablet, By Mouth, Daily, # 30 tablet, Refills 1, Tot. Refills 1, Maintenance, 07/30/19 15:06:26 EDT, Route to Pharmacy Electronically, [id number], [id number] Start Date: 07/30/19 Status: OrderedFlonase 50 mcg/inh nasal spray 2 sprays, Nares, Both, Daily in AM, # 16 Gm, 1 Refills, Maintenance, 07/30/19 15:06:27 EDT, [place], 2sprays Nares, Both Daily in AM Start Date: 07/30/19 Status: Ordered Problem List Condition Effective Dates Status Health Status Informant Anxiety(Confirmed) Active Dizziness(Confirmed) Active Headache(Confirmed) Active Social History Social History Type Response Smoking Status Never (less than 100 in life time) entered on: 03/04/19 Sex
--- OUTSIDE RECORDS SUMMARY | 2023-01-19 00:03 | XMS_ITS | Continuity of Care Document ---
:1995 Author Organization [facility] Adult Address [address] [place] [address]- Care Team Providers Name Role Phone Jenny CHRISTINA, Arpit Solano Primary Care Physician En[place] [facility] [place] Date(s): 06/19/20 - 07/19/20 [facility] Adult [address] [place] [address]- [facility] Allergies, Adverse Reactions, Alerts Substance Reaction Severity Status NKA Active Medications Claritin 10 mg oral tablet 10 mg, 1, tablet, By Mouth, Daily, # 30 tablet, Refills 1, Tot. Refills 1, Maintenance, 07/30/19 15:06:26 EDT, Route to Pharmacy Electronically, [id number], [id number] Start Date: 07/30/19 Status: OrderedFlonase 50 mcg/inh nasal spray 2 sprays, Nares, Both, Daily in AM, # 16 Gm, 1 Refills, Maintenance, 07/30/19 15:06:27 EDT, [place], 2sprays Nares, Both Daily in AM Start Date: 07/30/19 Status: Ordered Problem List Condition Effective Dates Status Health Status Informant Anxiety(Confirmed) Active Dizziness(Confirmed) Active Headache(Confirmed) Active Social History Social History Type Response Smoking Status Never (less than 100 in life time) entered on: 03/04/19 Sex
--- OUTSIDE RECORDS SUMMARY | 2023-01-19 00:03 | XMS_ITS | Continuity of Care Document ---
:1995 Author Organization [facility] Adult Address [address] [place] [address]- Care Team Providers Name Role Phone Jenny CHRISTINA, Arpit Solano Primary Care Physician [place] [facility] [place] 10/09/21 [facility] [address] [place] [address]- Attending Physician: Julienne Hudson Admitting Physician: Julienne [...]
--- OUTSIDE RECORDS SUMMARY | 2023-01-19 00:03 | XMS_ITS | Continuity of Care Document ---
:1995 Author Organization [facility] [place] Adult Address [address] [place] [address]- Care Team Providers Name Role Phone Jenny CHRISTINA, Arpit Solano Primary Care Physician [place] [facility] [place] 10/27/20 - 11/26/20 [facility] [place] Adult [address] [place] [address]- Allergies, Adverse Reactions, Alerts Substance Reaction Severity Status NKA Active Medications Claritin 10 mg oral tablet 10 mg, 1, tablet, By Mouth, Daily, # 30 tablet, Refills 1, Tot. Refills 1, Maintenance, 07/30/19 15:06:26 EDT, Route to Pharmacy Electronically, [id number], [facility]/pharmacy #[id number] Start Date: 07/30/19 Status: OrderedFlonase 50 mcg/inh nasal spray 2 sprays, Nares, Both, Daily in AM, # 16 Gm, 1 Refills, Maintenance, 07/30/19 15:06:27 EDT, [employer], 2sprays Nares, Both Daily in AM Start Date: 07/30/19 Status: OrderedNuLYTELY with Flavor Packs oral powder for reconstitution See Instructions, 240 mL By Mouth Every 15 minutes, # 4,000 mL, 0 Refills, Maintenance, 09/28/20 8:37:00 EST, [facility] #[id number], 240 mL By Mouth Every 15 minutes, 162, cm, 09/28/20 7:58:00 EST, Height Start Date: 09/28/20 Status: Ordered Problem List Condition Effective Dates Status Health Status Informant Anxiety(Confirmed) Active Dizziness(Confirmed) Active Headache(Confirmed) Active Social History Social History Type Response Smoking Status Never (less than 100 in life time) entered on: 03/04/19 Sex
--- OUTSIDE RECORDS SUMMARY | 2023-01-19 00:03 | XMS_ITS | Continuity of Care Document ---
:1995 Author Organization [facility] Adult Address [address] [place] [address]- Care Team Providers Name Role Phone Jenny CHRISTINA, Arpit Solano Primary Care Physician [place] [facility] [place] 04/[place]/22 [facility] Adult [address] [place] [address]- Allergies, Adverse Reactions, Alerts Substance Reaction Severity [...] obesity(Confirmed) Active Tension headache d/t Active cervicalgia(Confirmed) Social History Social History Type Response Smoking Status Never (less than 100 in life time) entered on: 03/04/19 Sex
--- OUTSIDE RECORDS SUMMARY | 2023-01-19 00:03 | XMS_ITS | Continuity of Care Document ---
:1995 Author Organization [facility] Adult Address [address] [place] [address]- Care Team Providers Name Role Phone Jenny CHRISTINA, Arpit Solano Primary Care Physician [place] [facility] [place] 05/21/20 [facility] Adult [address] [place] [address]- [facility] Attending Physician: Julienne Hudson Admitting Physician: AdmJulienne dhillon Referring Physician: AdmtrJulienne Allergies, Adverse Reactions, Alerts Substance Reaction Severity Status NKA Active Medications Claritin 10 mg oral tablet 10 mg, 1, tablet, By Mouth, Daily, # 30 tablet, Refills 1, Tot. Refills 1, Maintenance, 07/30/19 15:06:26 EDT, Route to Pharmacy Electronically, [id number], [facility]/pharmacy #[id number] Start Date: 07/30/19 Status: OrderedFlonase 50 mcg/inh nasal spray 2 sprays, Nares, Both, Daily in AM, # 16 Gm, 1 Refills, Maintenance, 07/30/19 15:06:27 EDT, [place], 2sprays Nares, Both Daily in AM Start Date: 07/30/19 Status: Ordered Problem List Condition Effective Dates Status Health Status Informant Anxiety(Confirmed) Active Dizziness(Confirmed) Active Headache(Confirmed) Active Social History Social History Type Response Smoking Status Never (less than 100 in life time) entered on: 03/04/19 Sex
--- OUTSIDE RECORDS SUMMARY | 2023-01-19 00:03 | XMS_ITS | Continuity of Care Document ---
:1995 Author Organization [facility] Adult Address [address] [place] [address]- Care Team Providers Name Role Phone Arpit Alvarado MD Primary Care Physician [id number] Date(s[facility]/08/20 - 04/15/20 [facility] Adult [address] [place] [address]- [facility] Attending Physician: Arpit Alvarado MD Allergies, Adverse Reactions, Alerts Substance Reaction Severity Status NKA Active Medications Claritin 10 mg oral tablet 10 mg, 1, tablet, By Mouth, Daily, # 30 tablet, Refills 1, Tot. Refills 1, Maintenance, 07/30/19 15:06:26 EDT, Route to Pharmacy Electronically, [id number], [facility]/pharmacy #[id number] Start Date: 07/30/19 Status: OrderedFlonase 50 mcg/inh nasal spray 2 sprays, Nares, Both, Daily in AM, # 16 Gm, 1 Refills, Maintenance, 07/30/19 15:06:27 EDT, [place], 2sprays Nares, Both Daily in AM Start Date: 07/30/19 Status: Ordered Problem List Condition Effective Dates Status Health Status Informant Anxiety(Confirmed) Active Dizziness(Confirmed) Active Headache(Confirmed) Active Vital Signs Most recent to oldest [Reference Range]: 1 Height 162 cm (04/08/20 12:51 PM) Social History Social History Type Response Smoking Status Never (less than 100 in life time) entered on: 03/04/19 Sex
--- OUTSIDE RECORDS SUMMARY | 2023-01-19 00:03 | XMS_ITS | Continuity of Care Document ---
:1995 Author Organization [facility] Address [address] [place] [address]- Care Team Providers Name Role Phone Jenny CHRISTINA, Arpit Solano Primary Care Physician [id number] Date[facility]10/20 - 02/10/[address] [address]- Attending Physician: Dilcia CHRISTINA, Brandy Admitting Physician: Brandy Ha MD Allergies, Adverse Reactions, Alerts Substance Reaction Severity Status NKA Active Medications Flonase 50 mcg/inh nasal spray 2 sprays, Nares, Both, Daily in AM, # 16 Gm, 1 Refills, Maintenance, 12/01/20 15:46:00 EST, [place], [id number], 2 sprays Nares, Both Daily in AM, 162, cm, 12/01/20 14:36:00 EST, Height Start Date: 12/01/20 Status: Orderedsertraline 25 mg oral tablet 1 [...]
--- OUTSIDE RECORDS SUMMARY | 2023-01-19 00:03 | XMS_ITS | Continuity of Care Document ---
:1995 Author Organization [facility] Adult Address [address] [place] [address]- Care Team Providers Name Role Phone Jenny CHRISTINA, Arpit Solano Primary Care Physician Encounter [facility] Date(s): 12/01/20 - 12/08/20 [facility] Adult [address] [place] [address]- Encounter Diagnosis COVID-19 virus infection (Discharge Diagnosis) - 12/01/20 Attending Physician: Mary [employer]PECT[employer], [place] Allergies, Adverse Reactions, Alerts Substance Reaction Severity Status NKA Active Medications Flonase 50 mcg/inh nasal spray 2 sprays, Nares, Both, Daily in AM, # 16 Gm, 1 Refills, Maintenance, 12/01/20 15:46:00 EST, [place], [id number], 2 sprays Nares, Both Daily in AM, 162, cm, 12/01/20 14:36:00 EST, Height Start Date: 12/01/20 Status: Ordered Problem List Condition Effective Dates Status Health Status Informant Anxiety(Confirmed) Active COVID-19(Confirmed) Active Dizziness(Confirmed) Active Headache(Confirmed) Active Diagnosis Diagnosis Type Effective Dates Health Status Clinical In formant Service COVID-19 virus Discharge 12/01/20 infection Diagnosis Vital Signs Most recent to oldest [Reference Range]: 1 Height 162 cm (12/01/20 2:36 PM) Social History Social History Type Response Smoking Status Never (less than 100 in life time) entered on: 03/04/19 Sex
--- OUTSIDE RECORDS SUMMARY | 2023-01-19 00:03 | XMS_ITS | Continuity of Care Document ---
:[address] [facility] Adult Address [address] [place] [address]- Care Team Providers Name Role Phone Jenny CHRISTINA, Arpit Solano Primary Care Physician [place] [facility] [place] Date(s): 02/20/20 - 03/01/20 [facility] Adult [address] [place] [address]- [facility] Attending Physician: Julienne Hudson Admitting Physician: AdmtrJulienne Referring Physician: AdmtrJulienne Allergies, Adverse Reactions, Alerts Substance Reaction Severity Status NKA Active Medications Claritin 10 mg oral tablet 10 mg, 1, tablet, By Mouth, Daily, # 30 tablet, Refills 1, Tot. Refills 1, Maintenance, 07/30/19 15:06:26 EDT, Route to Pharmacy Electronically, [id number], [facility]/pharmacy #[id number] Start Date: 07/30/19 Status: OrderedFlonase 50 mcg/inh nasal spray 2 sprays, Nares, Both, Daily in AM, # 16 Gm, 1 Refills, Maintenance, 07/30/19 15:06:27 EDT, [place], 2sprays Nares, Both Daily in AM Start Date: 07/30/19 Status: Ordered Problem List Condition Effective Dates Status Health Status Informant Anxiety(Confirmed) Active Dizziness(Confirmed) Active Headache(Confirmed) Active Social History Social History Type Response Smoking Status Never (less than 100 in life time) entered on: 03/04/19 Sex
--- OUTSIDE RECORDS SUMMARY | 2023-01-19 00:03 | XMS_ITS | Continuity of Care Document ---
:1995 Author Organization [facility] Adult Address [address] [place] [address]- Care Team Providers Name Role Phone Arpit Alvarado MD Primary Care Physician [place] [facility] [place] 07/30/20 - 12/11/20 [facility] Adult [address] [place] [address]- Attending Physician: Arpit Alvarado MD Allergies, Adverse Reactions, Alerts Substance Reaction Severity Status NKA Active Medications Flonase 50 mcg/inh nasal spray 2 sprays, Nares, Both, Daily in AM, # 16 Gm, 1 Refills, Maintenance, 12/01/20 15:46:00 EST, [place], [id number], 2 sprays Nares, Both Daily in AM, 162, cm, 12/01/20 14:36:00 EST, Height Start Date: 12/01/20 Status: Ordered Problem List Condition Effective Dates Status Health Status Informant Anxiety(Confirmed) Active COVID-19(Confirmed) Active Dizziness(Confirmed) Active Headache(Confirmed) Active Social History Social History Type Response Smoking Status Never (less than 100 in life time) entered on: 03/04/19 Sex
--- OUTSIDE RECORDS SUMMARY | 2023-01-19 00:04 | XMS_ITS | Continuity of Care Document ---
:1995 Author Organization [facility] Adult Address [address] [place] [address]- Care Team Providers Name Role Phone Jenny CHRISTINA, Arpit Solano Primary Care Physician [place] [facility] [place] 12/[place]/20 - 12/31/20 [facility] Adult [address] [place] [address]- Attending Physician: Admtr, Ar8 Admitting Physician: Admtr, Ar8 Referring Physician: Admtr, Ar8 Allergies, Adverse Reactions, Alerts Substance Reaction Severity Status NKA Active Medications Flonase 50 mcg/inh nasal spray 2 sprays, Nares, Both, Daily in AM, # 16 Gm, 1 Refills, Maintenance, 12/01/20 15:46:00 EST, [place], [id number], 2 sprays Nares, Both Daily in AM, 162, cm, 12/01/20 14:36:00 EST, Height Start Date: 12/01/20 Status: Ordered Problem List Condition Effective Dates Status Health Status Informant Anxiety(Confirmed) Active Dizziness(Confirmed) Active Headache(Confirmed) Active Social History Social History Type Response Smoking Status Never (less than 100 in life time) entered on: 03/04/19 Sex
--- OUTSIDE RECORDS SUMMARY | 2023-01-19 00:04 | XMS_ITS | Continuity of Care Document ---
:1995 Author Organization [facility] Adult Address [address] [place] [address]- Care Team Providers Name Role Phone Jenny CHRISTINA, Arpit Solano Primary Care Physician [id number] Date(s[facility]/10/21 - 07/10/21 [facility] Adult [address] [place] [address]- Allergies, Adverse Reactions, Alerts Substance Reaction Severity Status NKA Active Medications Flonase 50 mcg/inh nasal spray 2 sprays, Nares, Both, Daily in AM, # 16 Gm, 1 Refills, Maintenance, 12/01/20 15:46:00 EST, [place], [id number], 2 sprays Nares, Both Daily [...]
--- OUTSIDE RECORDS SUMMARY | 2023-01-19 00:04 | XMS_ITS | Continuity of Care Document ---
:1995 Author Organization [facility] Adult Address [address] [place] [address]- Care Team Providers Name Role Phone Arpit Alvarado MD Primary Care Physician En[place] [facility] [place] Date(s): 02/08/21 - 02/15/21 [facility] Adult [address] [place] [address]- Attending Physician: Arpit Alvarado MD Allergies, Adverse Reactions, Alerts Substance Reaction Severity Status NKA Active Medications Flonase 50 mcg/inh nasal spray 2 sprays, Nares, Both, Daily in AM, # 16 Gm, 1 Refills, Maintenance, 12/01/20 15:46:00 EST, [place], [id number], 2 sprays Nares, Both Daily [...]
--- OUTSIDE RECORDS SUMMARY | 2023-01-19 00:04 | XMS_ITS | Continuity of Care Document ---
:1995 Author Organization [facility] Adult Address [address] [place] [address]- Care Team Providers Name Role Phone Arpit Alvarado MD Primary Care Physician [id number] Date(s): 04/21/20 - 04/28/20 [facility] Adult [address] [place] [address]- [facility] Attending Physician: Arpit Alvarado MD Allergies, Adverse Reactions, Alerts Substance Reaction Severity Status NKA Active Medications Claritin 10 mg oral tablet 10 mg, 1, tablet, By Mouth, Daily, # 30 tablet, Refills 1, Tot. Refills 1, Maintenance, 07/30/19 15:06:26 EDT, Route to Pharmacy Electronically, [id number], [facility]/pharmacy #[id number] Start Date: 07/30/19 Status: OrderedFlonase 50 mcg/inh nasal spray 2 sprays, Nares, Both, Daily in AM, # 16 Gm, 1 Refills, Maintenance, 07/30/19 15:06:27 EDT, [place], 2sprays Nares, Both Daily in AM Start Date: 07/30/19 Status: Ordered Problem List Condition Effective Dates Status Health Status Informant Anxiety(Confirmed) Active Dizziness(Confirmed) Active Headache(Confirmed) Active Vital Signs Most recent to oldest [Reference Range]: 1 Height 162 cm (04/21/20 11:52 AM) Social History Social History Type Response Smoking Status Never (less than 100 in life time) entered on: 03/04/19 Sex
--- OUTSIDE RECORDS SUMMARY | 2023-01-19 00:04 | XMS_ITS | Continuity of Care Document ---
:1995 Author Organization [facility] Adult Address [address] [place] [address]- Care Team Providers Name Role Phone Arpit Alvarado MD Primary Care Physician En[place] [facility] [place] [facility] [place] [id number] Date(s): 07/29/20 - 08/05/20 [facility] Adult [address] [place] [address]- [facility] Attending Physician: Arpit Alvarado MD Allergies, Adverse Reactions, Alerts Substance Reaction Severity Status NKA Active Medications Claritin 10 mg oral tablet 10 mg, 1, tablet, By Mouth, Daily, # 30 tablet, Refills 1, Tot. Refills 1, Maintenance, 07/30/19 15:06:26 EDT, Route to Pharmacy Electronically, [id number], [facility]/pharmacy #[id number] Start Date: 07/30/19 Status: OrderedFlonase 50 mcg/inh nasal spray 2 sprays, Nares, Both, Daily in AM, # 16 Gm, 1 Refills, Maintenance, 07/30/19 15:06:27 EDT, [place], 2sprays Nares, Both Daily in AM Start Date: 07/30/19 Status: Ordered Problem List Condition Effective Dates Status Health Status Informant Anxiety(Confirmed) Active Dizziness(Confirmed) Active Headache(Confirmed) Active Vital Signs Most recent to oldest [Reference Range]: 1 Height 162 cm (07/29/20 10:12 AM) Social History Social History Type Response Smoking Status Never (less than 100 in life time) entered on: 03/04/19 Sex
--- OUTSIDE RECORDS SUMMARY | 2023-01-19 00:04 | XMS_ITS | Continuity of Care Document ---
:1995 Author Organization [facility] Address [address] [place] [address]- Care Team Providers Name Role Phone Jenny CHRISTINA, Arpit Solano Primary Care Physician [place] [facility] [place] Date(s): 12/09/21 - 01/08/22 [facility] [address] [place] [address]- Attending Physician: Julienne Hudson Admitting Physician: AdmJulienne [...]
--- OUTSIDE RECORDS SUMMARY | 2023-01-19 00:04 | XMS_ITS | Continuity of Care Document ---
:1995 Author Organization [facility] Adult Address [address] [place] [address]- Care Team Providers Name Role Phone Arpit Alvarado MD Primary Care Physician [id number] Date(s): 02/08/21 - 04/07/21 [facility] Adult [address] [place] [address]- Attending Physician: Arpit Alvarado MD Allergies, Adverse Reactions, Alerts Substance Reaction Severity Status NKA Active Medications Flonase 50 mcg/inh nasal spray 2 sprays, Nares, Both, Daily in AM, # 16 Gm, 1 Refills, Maintenance, 12/01/20 15:46:00 EST, [place], [id number], 2 sprays Nares, Both Daily [...]
--- OUTSIDE RECORDS SUMMARY | 2023-01-19 00:04 | XMS_ITS | Continuity of Care Document ---
:1995 Author Organization [facility] Address [address] [place] [address]- Care Team Providers Name Role Phone Arpit Alvarado MD Primary Care Physician [id number](s): [facility] - [facility]/20 [facility] [address] [place] [address] Attending Physician: Sergio Valdovinos Admitting Physician: Sergio Valdovinos Referring Physician: Arpit Alvarado MD Allergies, Adverse Reactions, Alerts Substance Reaction Severity Status NKA Active Medications Claritin 10 mg oral tablet 10 mg, 1, tablet, By Mouth, Daily, # 30 tablet, Refills 1, Tot. Refills 1, Maintenance, 07/30/19 15:06:26 EDT, Route to Pharmacy Electronically, [id number], [facility]/pharmacy #[id number] Start Date: 07/30/19 Status: OrderedFlonase 50 mcg/inh nasal spray 2 sprays, Nares, Both, Daily in AM, # 16 Gm, 1 Refills, Maintenance, 07/30/19 15:06:27 EDT, [place], 2sprays Nares, Both Daily in AM Start Date: 07/30/19 Status: Ordered Problem List Condition Effective Dates Status Health Status Informant Anxiety(Confirmed) Active Dizziness(Confirmed) Active Headache(Confirmed) Active Social History Social History Type Response Smoking Status Never (less than 100 in life time) entered on: 03/04/19 Sex
--- OUTSIDE RECORDS SUMMARY | 2023-01-19 00:04 | XMS_ITS | Continuity of Care Document ---
:1995 Author Organization [facility] Adult Address [address] [place] [address]- Care Team Providers Name Role Phone Jenny CHRISTINA, Arpit Solano Primary Care Physician [id number] Date([facility] - 05/19/21 [facility] Adult [address] [place] [address]- Allergies, Adverse Reactions, Alerts Substance Reaction Severity Status NKA Active Medications Flonase 50 mcg/inh nasal spray 2 sprays, Nares, Both, Daily in AM, # 16 Gm, 1 Refills, Maintenance, 12/01/20 15:46:00 EST, [place], [id number], 2 sprays Nares, Both Daily [...]
--- OUTSIDE RECORDS SUMMARY | 2023-01-19 00:04 | XMS_ITS | Continuity of Care Document ---
:1995 Author Organization [facility] Adult Address [address] [place] [address]- Care Team Providers Name Role Phone Jenny CHRISTINA, Arpit Solano Primary Care Physician [place] [facility] [place] Date(s): 08/06/21 - 08/13/21 [facility] Adult [address] [place] [address]- Encounter Diagnosis Chronic LLQ pain (Discharge Diagnosis) - 08/06/21 Depression (Discharge Diagnosis) - 08/06/21 Elevated BP without diagnosis of hypertension (Discharge Diagnosis) - 08/06/21 Attending Physician: Greg BLACKBURN, Christelle Craig Allergies, Adverse Reactions, Alerts Substance Reaction Severity [...] Active disorder)(Confirmed) Tension headache d/t Active cervicalgia(Confirmed) Diagnosis Diagnosis Type Effective Dates Health Clinical Infor mant Status Service Chronic LLQ pain Discharge 08/06/21 Diagnosis Depression Discharge 08/06/21 Diagnosis Elevated BP without Discharge 08/06/21 diagnosis of Diagnosis hypertension Vital Signs Most recent to oldest [Reference Range]: 1 Height 162 cm (08/06/21 8:10 AM) Weight 130.4 kg (08/06/21 8:10 AM) Oxygen Saturation [94-100 %] 98 % (08/06/21 8:10 AM) Pulse Rate [55-90 bpm] 67 bpm (08/06/21 8:10 AM) Body Mass Index [18.5-24.99] 49.69 *>HHI* (08/06/21 8:10 AM) Blood Pressure [90-138/55-84 mm Hg] 118/84 mm Hg (08/06/21 8:10 AM) Temperature [96.8-100.4 DegF] 97.9 DegF (08/06/21 8:10 AM) Mode of Delivery (Oxygen) Room air (08/06/21 8:10 AM) Blood pressure sites Arm, right (08/06/21 8:10 AM) Temperature Route Oral (08/06/21 8:10 AM) Weight Obtained Via Standing scale (08/06/21 8:10 AM) Social History Social History Type Response Smoking Status Never (less than 100 in life time) entered on: 03/04/19 Sex
--- OUTSIDE RECORDS SUMMARY | 2023-01-19 00:04 | XMS_ITS | Continuity of Care Document ---
:1995 Author Organization [facility] Adult Address [address] [place] [address]- Care Team Providers Name Role Phone Jenny CHRISTINA, Arpit Solano Primary Care Physician [place] [facility] [place]s): 07/30/20 - 08/29/20 [facility] Adult [address] [place] [address]- [facility] Allergies, Adverse Reactions, Alerts Substance Reaction Severity Status NKA Active Medications Claritin 10 mg oral tablet 10 mg, 1, tablet, By Mouth, Daily, # 30 tablet, Refills 1, Tot. Refills 1, Maintenance, 07/30/19 15:06:26 EDT, Route to Pharmacy Electronically, [id number], [facility]/pharmacy #[id number] Start Date: 07/30/19 Status: OrderedFlonase 50 mcg/inh nasal spray 2 sprays, Nares, Both, Daily in AM, # 16 Gm, 1 Refills, Maintenance, 07/30/19 15:06:27 EDT, [place], 2sprays Nares, Both Daily in AM Start Date: 07/30/19 Status: Ordered Problem List Condition Effective Dates Status Health Status Informant Anxiety(Confirmed) Active Dizziness(Confirmed) Active Headache(Confirmed) Active Social History Social History Type Response Smoking Status Never (less than 100 in life time) entered on: 03/04/19 Sex
--- OUTSIDE RECORDS SUMMARY | 2023-01-19 00:04 | XMS_ITS | Continuity of Care Document ---
:[address] [facility] Adult Address [address] [place] [address]- Care Team Providers Name Role Phone Jenny CHRISTINA, Arpit Solano Primary Care Physician En[facility] [place] Date(s): 12/01/20 - 12/31/20 [facility] Adult [address] [place] [address]- Allergies, Adverse Reactions, Alerts Substance Reaction Severity Status NKA Active Medications Flonase 50 mcg/inh nasal spray 2 sprays, Nares, Both, Daily in AM, # 16 Gm, 1 Refills, Maintenance, 12/01/20 15:46:00 EST, [place], [id number], 2 sprays Nares, Both Daily in AM, 162, cm, 12/01/20 14:36:00 EST, Height Start Date: 12/01/20 Status: Ordered Problem List Condition Effective Dates Status Health Status Informant Anxiety(Confirmed) Active Dizziness(Confirmed) Active Headache(Confirmed) Active Social History Social History Type Response Smoking Status Never (less than 100 in life time) entered on: 03/04/19 Sex
--- OUTSIDE RECORDS SUMMARY | 2023-01-19 00:04 | XMS_ITS | Continuity of Care Document ---
:1995 Author Organization [facility] Adult Address [address] [place] [address]- Care Team Providers Name Role Phone Jenny CHRISTINA, Arpit Solano Primary Care Physician [place] [facility] [place] 02/20/20 - 02/27/20 [facility] Adult [address] [place] [address]- [facility] Encounter Diagnosis Chest wall pain (Discharge Diagnosis) - 02/20/20 Attending Physician: Wei Chávez MD Allergies, Adverse Reactions, Alerts Substance Reaction Severity Status NKA Active Medications Claritin 10 mg oral tablet 10 mg, 1, tablet, By Mouth, Daily, # 30 tablet, Refills 1, Tot. Refills 1, Maintenance, 07/30/19 15:06:26 EDT, Route to Pharmacy Electronically, [id number], [facility]/pharmacy #[id number] Start Date: 07/30/19 Status: OrderedFlonase 50 mcg/inh nasal spray 2 sprays, Nares, Both, Daily in AM, # 16 Gm, 1 Refills, Maintenance, 07/30/19 15:06:27 EDT, [place], 2sprays Nares, Both Daily in AM Start Date: 07/30/19 Status: Ordered Problem List Condition Effective Dates Status Health Status Informant Anxiety(Confirmed) Active Dizziness(Confirmed) Active Headache(Confirmed) Active Diagnosis Diagnosis Type Effective Dates Health Status Clinical In formant Service Chest wall pain Discharge 02/20/20 Diagnosis Social History Social History Type Response Smoking Status Never (less than 100 in life time) entered on: 03/04/19 Sex
--- OUTSIDE RECORDS SUMMARY | 2023-01-19 00:04 | XMS_ITS | Continuity of Care Document ---
:1995 Author Organization [facility] Adult Address [address] [place] [address]- Care Team Providers Name Role Phone Arpit Alvarado MD Primary Care Physician [place] [facility] [place] 11/14/19 - 12/18/19 [facility] Adult [address] [place] [address]- [facility] Attending Physician: Arpit Alvarado MD Allergies, Adverse Reactions, Alerts Substance Reaction Severity Status NKA Active Medications Claritin 10 mg oral tablet 10 mg, 1, tablet, By Mouth, Daily, # 30 tablet, Refills 1, Tot. Refills 1, Maintenance, 07/30/19 15:06:26 EDT, Route to Pharmacy Electronically, [id number], [facility]/pharmacy #[id number] Start Date: 07/30/19 Status: OrderedFlonase 50 mcg/inh nasal spray 2 sprays, Nares, Both, Daily in AM, # 16 Gm, 1 Refills, Maintenance, 07/30/19 15:06:27 EDT, [place], 2sprays Nares, Both Daily in AM Start Date: 07/30/19 Status: Ordered Problem List Condition Effective Dates Status Health Status Informant Anxiety(Confirmed) Active Dizziness(Confirmed) Active Headache(Confirmed) Active Social History Social History Type Response Smoking Status Never (less than 100 in life time) entered on: 03/04/19 Sex
--- OUTSIDE RECORDS SUMMARY | 2023-01-19 00:04 | XMS_ITS | Continuity of Care Document ---
:1995 Author Organization [facility] Adult Address [address] [place] [address]- Care Team Providers Name Role Phone Arpit Alvarado MD Primary Care Physician [place] [facility] [place] [id number] Date(s): 03/05/20 - 03/12/20 [facility] Adult [address] [place] [address]- [facility] Attending Physician: Arpit Alvarado MD Allergies, Adverse Reactions, Alerts Substance Reaction Severity Status NKA Active Medications Claritin 10 mg oral tablet 10 mg, 1, tablet, By Mouth, Daily, # 30 tablet, Refills 1, Tot. Refills 1, Maintenance, 07/30/19 15:06:26 EDT, Route to Pharmacy Electronically, [id number], [facility]/pharmacy #[id number] Start Date: 07/30/19 Status: OrderedFlonase 50 mcg/inh nasal spray 2 sprays, Nares, Both, Daily in AM, # 16 Gm, 1 Refills, Maintenance, 07/30/19 15:06:27 EDT, [place], 2sprays Nares, Both Daily in AM Start Date: 07/30/19 Status: Ordered Problem List Condition Effective Dates Status Health Status Informant Anxiety(Confirmed) Active Dizziness(Confirmed) Active Headache(Confirmed) Active Social History Social History Type Response Smoking Status Never (less than 100 in life time) entered on: 03/04/19 Sex
--- OUTSIDE RECORDS SUMMARY | 2023-01-19 00:04 | XMS_ITS | Continuity of Care Document ---
:1995 Author Organization [facility] Adult Address [address] [place] [address]- Care Team Providers Name Role Phone Arpit Alvarado MD Primary Care Physician Encounter [facility] [place] [id number] Date(s): 12/25/19 - 01/01/20 [facility] Adult [address] [place] [address]- [facility] Attending Physician: Arpit Alvarado MD Allergies, Adverse Reactions, Alerts Substance Reaction Severity Status NKA Active Medications Claritin 10 mg oral tablet 10 mg, 1, tablet, By Mouth, Daily, # 30 tablet, Refills 1, Tot. Refills 1, Maintenance, 07/30/19 15:06:26 EDT, Route to Pharmacy Electronically, [id number], [facility]/pharmacy #[id number] Start Date: 07/30/19 Status: Orderedcyclobenzaprine 10 mg oral tablet 10 mg, 1, tablet, By Mouth, Daily, PRN, # 15 tablet, Refills 1, Tot. Refills 1, Acute 02/23/20 14:37:00 EDT, as needed for muscle spasm, 12/25/19 14:37:00 EST, Route to Pharmacy Electronically, [facility]/pharmacy #[id number], 162, cm, 12/25/19 13:52:00 EST, Height Start Date: 12/25/19 Stop Date: 02/23/20 Status: OrderedFlonase 50 mcg/inh nasal spray 2 sprays, Nares, Both, Daily in AM, # 16 Gm, 1 Refills, Maintenance, 07/30/19 15:06:27 EDT, [place], 2sprays Nares, Both Daily in AM Start Date: 07/30/19 Status: Ordered Problem List Condition Effective Dates Status Health Status Informant Anxiety(Confirmed) Active Dizziness(Confirmed) Active Headache(Confirmed) Active Vital Signs Most recent to oldest [Reference Range]: 1 Height 162 cm (12/25/19 1:52 PM) Weight 129.7 kg (12/25/19 1:52 PM) Oxygen Saturation [94-100 %] 99 % (12/25/19 1:52 PM) Pulse Rate [55-90 bpm] 90 bpm (12/25/19 1:52 PM) Body Mass Index [18.5-24.99] 49.42 *>HHI* (12/25/19 1:52 PM) Blood Pressure [90-138/55-84 mm Hg] 122/80 mm Hg (12/25/19 1:52 PM) Temperature [96.8-100.4 DegF] 97.9 DegF (12/25/19 1:52 PM) Mode of Delivery (Oxygen) Room air (12/25/19 1:52 PM) Blood pressure sites Arm, left (12/25/19 1:52 PM) Temperature Route Oral (12/25/19 1:52 PM) Weight Obtained Via Standing scale (12/25/19 1:52 PM) Social History Social History Type Response Smoking Status Never (less than 100 in life time) entered on: 03/04/19 Sex
--- OUTSIDE RECORDS SUMMARY | 2023-01-19 00:04 | XMS_ITS | Continuity of Care Document ---
:1995 Author Organization [facility] Address [address] [place] [address]- Care Team Providers Name Role Phone Jenny CHRISTINA, Arpit Solano Primary Care Physician [place] [facility] [place] 12[place]16/21 [facility] [address] [place] [address]- Attending Physician: Angel Patton MD Admitting Physician: Angel Patton MD Referring Physician: Arpit Alvarado MD Allergies, [...]
--- OUTSIDE RECORDS SUMMARY | 2023-01-19 00:04 | XMS_ITS | Continuity of Care Document ---
:1995 Author Organization [facility] Address [address] [place] [address]- Care Team Providers Name Role Phone Jenny CHRISTINA, Arpit Solano Primary Care Physician En[place] [facility] [place] 11/17/21 - 01/08/22 [facility] [address] [place] [address]- Attending Physician: Darinel Salinas MD Admitting Physician: Darinel Salinas MD Referring Physician: Arpit Alvarado MD Allergies, [...]
--- OUTSIDE RECORDS SUMMARY | 2023-01-19 00:04 | XMS_ITS | Continuity of Care Document ---
:1995 Author Organization [facility] Address [address] [place] [address]- Care Team Providers Name Role Phone Arpit Alvarado MD Primary Care Physician En[place] [facility] [place] [id number] Date(s): 03/12/21 - 04/11/[address] [address]- Attending Physician: Julienne Hudson Admitting Physician: AdmtrJulienne Referring Physician: Admtr Ar8 Allergies, Adverse Reactions, Alerts Substance Reaction Severity Status NKA Active Medications Flonase 50 mcg/inh nasal spray 2 sprays, Nares, Both, Daily in AM, # 16 Gm, 1 Refills, Maintenance, 12/01/20 15:46:00 EST, [place], [facility] #[id number], 2 sprays Nares, Both Daily [...]
--- OUTSIDE RECORDS SUMMARY | 2023-01-19 00:05 | XMS_ITS | Continuity of Care Document ---
:1995 Author Organization [facility] Adult Address [address] [place] [address]- Care Team Providers Name Role Phone Arpit Alvarado MD Primary Care Physician En[place] [facility] [place] [id number] Date(s): 07/28/20 - 08/27/20 [facility] Adult [address] [place] [address]- [facility] Attending Physician: Latanya Hammonds NP Referring Physician: Arpit Alvarado MD Allergies, Adverse Reactions, Alerts Substance Reaction Severity Status NKA Active Medications Claritin 10 mg oral tablet 10 mg, 1, tablet, By Mouth, Daily, # 30 tablet, Refills 1, Tot. Refills 1, Maintenance, 07/30/19 15:06:26 EDT, Route to Pharmacy Electronically, [id number], [facility]/pharmacy #[id number] Start Date: 07/30/19 Status: OrderedFlonase 50 mcg/inh nasal spray 2 sprays, Nares, Both, Daily in AM, # 16 Gm, 1 Refills, Maintenance, 07/30/19 15:06:27 EDT, [place], 2sprays Nares, Both Daily in AM Start Date: 07/30/19 Status: Ordered Problem List Condition Effective Dates Status Health Status Informant Anxiety(Confirmed) Active Dizziness(Confirmed) Active Headache(Confirmed) Active Social History Social History Type Response Smoking Status Never (less than 100 in life time) entered on: 03/04/19 Sex
--- OUTSIDE RECORDS SUMMARY | 2023-01-19 00:05 | XMS_ITS | Continuity of Care Document ---
:1995 Author Organization [facility] Adult Address [address] [place] [address]- Care Team Providers Name Role Phone Jenny CHRISTINA, Arpit Solano Primary Care Physician En[place] [facility] [place](s): 10/27/20 - 11/26/20 [facility] Adult [address] [place] [address]- Allergies, Adverse Reactions, Alerts Substance Reaction Severity Status NKA Active Medications Claritin 10 mg oral tablet 10 mg, 1, tablet, By Mouth, Daily, # 30 tablet, Refills 1, Tot. Refills 1, Maintenance, 07/30/19 15:06:26 EDT, Route to Pharmacy Electronically, [id number], [facility]/pharmacy #[id number] Start Date: 07/30/19 Status: OrderedFlonase 50 mcg/inh nasal spray 2 sprays, Nares, Both, Daily in AM, # 16 Gm, 1 Refills, Maintenance, 07/30/19 15:06:27 EDT, [place], 2sprays Nares, Both Daily in AM Start Date: 07/30/19 Status: OrderedNuLYTELY with Flavor Packs oral powder for reconstitution See Instructions, 240 mL By Mouth Every 15 minutes, # 4,000 mL, 0 Refills, Maintenance, 09/28/20 8:37:00 EST, [facility] #[id number], 240 mL By Mouth Every 15 minutes, 162, cm, 09/28/20 7:58:00 EST, Height Start Date: 09/28/20 Status: Ordered Problem List Condition Effective Dates Status Health Status Informant Anxiety(Confirmed) Active Dizziness(Confirmed) Active Headache(Confirmed) Active Social History Social History Type Response Smoking Status Never (less than 100 in life time) entered on: 03/04/19 Sex
--- OUTSIDE RECORDS SUMMARY | 2023-01-19 00:05 | XMS_ITS | Continuity of Care Document ---
:1995 Author Organization [facility] Adult Address [address] [place] [address]- Care Team Providers Name Role Phone Arpit Alvarado MD Primary Care Physician [facility] [id number] Date(s): 09/26/22 - 10/03/22 [facility] Adult [address] [place] [address]- Attending Physician: Arpit Alvarado MD Allergies, Adverse Reactions, Alerts Substance Reaction Severity Status Mold Active Immunizations Given and Recorded Vaccine Date Status Refusal Reason influenza virus vaccine, inactivated1 09/26/22 Given influenza virus vaccine, inactivated 09/21/21 Recorded influenza virus vaccine, inactivated 07/30/19 Recorded SARS-CoV-2 (COVID-19) mRNA BNT-162b2 vac 01/19/21 Recorde d SARS-CoV-2 (COVID-19) mRNA BNT-162b2 vac 12/29/20 Recorde d tetanus/diphtheria/pertussis, acel(Tdap) 09/27/19 Recorde d Varicella Virus Vaccine 09/24/19 Recorded Measles/Mumps/Rubella Virus Vaccine 09/24/19 Recorded hepatitis B adult vaccine 09/24/19 Recorded hepatitis B adult vaccine 01/27/17 Recorded hepatitis B adult vaccine 12/30/16 Recorded 1Result Comment: [id number] Medications Biotin By Mouth, Daily, 0 Refills, Maintenance, 09/26/22 13:22:00 EDT, Partial fill upon patient request ifthe prescription is for a schedule II opioid drug. Start Date: 09/26/22 Status: OrderedCalcium 600 +D By Mouth, 0 Refills, Maintenance, 03/25/22 10:18:00 EDT, Partial fill upon patient request if the prescription is for a schedule II opioid drug. Start Date: 03/25/22 Status: OrderedMultivitamin Daily, 0 Refills, Maintenance, 03/25/22 10:19:00 EDT, Partial fill upon patient request if the prescription is for a schedule II opioid drug. Start Date: 03/25/22 Status: Orderednaproxen 500 mg oral tablet 1 tablet = 500 mg, By Mouth, 2 times a day, PRN for pain or headache, # 30 tablet, 3 Refills, Acute 11/27/22 7:05:00 EST, 09/27/22 7:05:00 EDT, Tablet, [facility][id number], Partial fill upon patient request if the prescription is for a schedul... Start Date: 09/27/22 Stop Date: 11/27/22 Status: OrderedtraZODone 50 mg oral tablet 25 mg, 0.5, tablet, By Mouth, Daily at bedtime, Can increase to 1 tablet after 3 days if needed, # 30 tablet, Refills 3, Tot. Refills 3, Maintenance, 09/27/22 7:04:00 EDT, Route to Pharmacy Electronically, [facility] #[id number], Partial fill upo... Start Date: 09/27/22 Status: Ordered Problem List Condition Confirmation Course Effective Dates Status Health Stat us Informant Anxiety Confirmed Active Dizziness Confirmed Active Headache Confirmed Active Obese class I Confirmed Active PMDD (premenstrual Confirmed Active dysphoric disorder) Tension headache Confirmed Active d/t cervicalgia Vital Signs Most recent to oldest [Reference Range]: 1 Height 161.0 cm (09/26/22 1:19 PM) Weight 85.7 kg (09/26/22 1:19 PM) Oxygen Saturation [94-100 %] 99 % (09/26/22 1:19 PM) Pulse Rate [55-90 bpm] 64 bpm (09/26/22 1:19 PM) Body Mass Index [18.5-24.99 kg/m2] 33.06 kg/m2 *>HHI* (09/26/22 1:19 PM) Blood Pressure [90-138/55-84 mm Hg] 114/77 mm Hg (09/26/22 1:19 PM) Mode of Delivery (Oxygen) Room air (09/26/22 1:19 PM) Blood pressure sites Arm, left (09/26/22 1:19 PM) Weight Obtained Via Standing scale (09/26/22 1:19 PM) Social History Social History Type Response Smoking Status Never (less than 100 in life time) entered on: 03/04/19 Sex Patient Care team information Care Team PersonnelName: Jenny CHRISTINA, Arpit Solano Position: S Primary Care Physician Member Role: PCP Address: Address: [address] [place] [address]- Care Team Related PersonsName: EVELINA MART Address: home [address] [place] [address] Name: CIRO GUNN Address: home [address] [place] [address]
--- NOTE | 2023-01-19 00:50 | ED.FALL ---
HPI - Fall General Chief Complaint: Fall Stated Complaint: head inj from a few days ago Time Seen by Provider: 01/19/23 00:47 Source: patient Mode of arrival: ambulatory Limitations: no limitations History of Present Illness HPI Narrative: Patient history of chronic headaches history of migraine apparently 5 days ago slipped bathtub and fell hitting her head to the wall since then complaining of headache had nausea vomited 1 time now still complaining of headaches. No focal weakness no vomiting now no memory loss Related Data Home Medications Medication Instructions Recorded Confirmed biotin 1 mg tablet 1 mg PO DAILY 08/05/22 08/05/22 calcium citrate 315 mg-vitamin D3 1 tab PO BID 08/05/22 08/05/22 5 mcg (200 unit) tablet (Calcium Citrate + D) multivitamin 1 tab PO DAILY 08/05/22 08/05/22 Previous Rx's Medication Instructions Recorded xpmwbnlbit-cxscwclcjbkll-eflegoun 1 cap PO Q6H PRN headache #20 caps 01/19/23 50 mg-300 mg-40 mg capsule (Fioricet) Allergies Allergy/AdvReac Type Severity Reaction Status Date / Time mold Allergy Severe Rash, Itchy Verified 01/18/23 23:36 Seasonal Allergies Allergy Severe Runny Verified 01/18/23 23:36 Nose, Watery Eyes Review of Systems Review of Systems: Yes all other systems are reviewed and are negative PMFSH Past Medical History Medical History Anxiety Back pain Chronic headaches Depression GERD (gastroesophageal reflux disease) Morbid obesity RBBB Surgical History Hx of wisdom tooth extraction Status post sleeve gastrectomy Family History Family History Mother Asthma Diabetes Hypertension Father Asthma Diabetes Hyperlipidemia Hypertension Sister No problems noted. Sister No problems noted. Sister No problems noted. Sister No problems noted. Brother No problems noted. Brother No problems noted. Brother No problems noted. Brother No problems noted. Social History Social History Are you a primary health care manager to a significant other at home: No Do you presently have visiting nurse or other home services: No Alcohol intake: current Alcohol intake frequency: holidays/special occasions only Patient Tobacco Use Status: Never used Tobacco Advance Directives: No Advance Directives Information Provided: Yes service: No Current occupational status: employed Physical Exam Vital Signs: Vital Signs: Last Vital Signs Temp 97.9 F 01/18/23 23:36 Pulse 55 01/18/23 23:36 Resp 16 01/18/23 23:36 BP 144/96 H 01/18/23 23:36 Pulse Ox 100 01/18/23 23:36 O2 Del Method 01/18/23 23:36 BMI result Body Mass Index 29.7 Appearance: Alert. Oriented X3. No acute distress. Eyes: PERRLA, No Nystagmus ENT: Pharynx normal. Oral Mucosa moist no signs of injury noticed Neck: Normal inspection. Neck supple. CVS: Normal heart rate and rhythm. Pulses normal. Respiratory: No respiratory distress. Equal air entry bilateral, no wheezing/rales/rhonchi Abdomen: Soft and nontender. Bowel sounds are present, no mass palpable, no CVA tenderness Skin: Skin warm and dry. Normal skin color. Normal skin turgor. Extremities: No lower extremity edema. No calf tenderness Neuro: Oriented X 3. No motor deficit. No sensory deficit.No cerebellar signs , cranial nerves II-XII intact Medical Decision Making Medical Decision Making MDM Narrative: Patient history of chronic headaches status post mild head injury does not meet the criteria for CT scan of the head will discharge patient home on Fioricet Discharge Plan Discharge Clinical Impression: Minor closed head injury Patient Disposition: Home, Self-Care Instructions: Head Injury (ED) Additional Instructions: fioricet for headache Prescriptions: New vnnuimudge-vjlkmqsvwobxq-busg [Fioricet] 50-300-40 mg capsule 1 cap PO Q6H PRN (Reason: headache) Qty: 20 0RF No Action multivitamin Tablet 1 tab PO DAILY calcium citrate-vitamin D3 [Calcium Citrate + D] 315 mg-5 mcg (200 unit) tablet 1 tab PO BID biotin 1 mg tablet 1 mg PO DAILY Discharge Date/Time: 01/19/23 01:53
== END 2023-01-19 01:53 | disposition home or self-care (01) ==
PROVIDERS: Emergency Provider Internal Medicine
DX: S09.90XA Unspecified injury of head, initial encounter (principal); W18.2XXA Fall in (into) shower or empty bathtub, initial encounter; Y93.E1 Activity, personal bathing and showering; Y92.031 Bathroom in apartment as the place of occurrence of the external cause; Y99.9 Unspecified external cause status
CPT/HCPCS: 99281; 99283

== ENCOUNTER → 2023-01-30 11:30 | Outpatient (BNVA) | payer OTHER, SELFPAY | PROVIDERS: PCP Family Medicine; Visit Provider Counselor Mental Health | DX: F41.1 Generalized anxiety disorder (principal); F33.1 Major depressive disorder, recurrent, moderate; Z90.3 Acquired absence of stomach [part of] | CPT/HCPCS: 90834 ==

== ENCOUNTER → 2023-02-23 09:11 | Outpatient (BNVA) | payer OTHER, SELFPAY | PROVIDERS: PCP Family Medicine; Visit Provider Dietitian, Registered | DX: Z71.3 Dietary counseling and surveillance (principal); E66.3 Overweight; F41.8 Other specified anxiety disorders; Z68.30 Body mass index [BMI] 30.0-30.9, adult; Z90.3 Acquired absence of stomach [part of] | CPT/HCPCS: 97803 ==

== ENCOUNTER → 2023-05-10 16:30 | Outpatient (BNVA) | payer OTHER, SELFPAY | PROVIDERS: PCP Family Medicine; Visit Provider Physician Assistant Surgical | DX: E66.9 Obesity, unspecified (principal); Z68.31 Body mass index [BMI] 31.0-31.9, adult; Z90.3 Acquired absence of stomach [part of] | CPT/HCPCS: 99212 ==

== ENCOUNTER 2023-05-11 06:09 | Outpatient (REF) | payer OTHER, SELFPAY ==
[2023-05-11 06:26] LABS: MANUAL DIFF FLAG NO
[2023-05-11 07:08] LABS: Basophils Absolute Auto 0.1 X10*3/uL (0.0-0.2); Basophils Percent Auto 1.1 % (0-2); Eosinophils Absolute Auto 0.1 X10*3/uL (0.0-0.4); Eosinophils Percent Auto 0.8 % (0-4); Hematocrit 39.2 % (37.0-47.0); Hemoglobin 13.1 g/dl (12.0-16.0); Imm Gran Abs Auto 0.02 X10*3/uL (0.00-0.03); Imm Gran Pct Auto 0.3 % (0.0-0.4); Lymphocytes Absolute Auto 2.5 X10*3/uL (1.2-4.9); Lymphocytes Percent Auto 40.1 % (20-40); Mean Corpuscular HGB Conc 33.4 g/dl (31.0-35.0); Mean Corpuscular Hemoglobin 30.8 pg (27.0-33.0); Mean Corpuscular Volume 92.2 fL (80.0-98.0); Monocytes Absolute Auto 0.5 X10*3/uL (0.1-1.2); Monocytes Percent Auto 7.2 % (2-11); Neutrophils Absolute Auto 3.1 x10*3/uL (2.0-8.3); Neutrophils Percent Auto 50.5 % (45-73); Platelet Count 238 X10*3/uL (160-400); Red Blood Count 4.25 X10*6/uL (4.20-5.50); Red Cell Distribution Width 12.9 % (11.0-16.0); White Blood Count 6.2 X10*3/uL (4.8-10.8)
[2023-05-11 09:02] LABS: Estimated Average Glucose 85 mg/dL; Hemoglobin A1c % 4.6 %
[2023-05-11 11:08] LABS: Alanine Aminotransferase 10 U/L (0-31); Albumin Level 3.9 g/dL (3.5-5.0); Alkaline Phosphatase 36 U/L (39-117); Anion Gap 11 (12-20); Aspartate Amino Transferase 15 U/L (5-31); Bilirubin Total 0.7 mg/dL (0.0-1.0); Blood Urea Nitrogen 9 mg/dL (9-16); C Reactive Protein < 0.04 mg/dL (< or = 0.50); Calcium 9.2 mg/dL (8.4-10.2); Carbon Dioxide 29 mmol/L (22-29); Chloride 105 mmol/L (96-108); Cholesterol 172 mg/dL; Estimated Glomerular Filt Rate > 60; Glucose Random 78 mg/dL (60-115); HDL Cholesterol 57 mg/dL; Iron 70 mcg/dL (30-160); LDL Cholesterol Calculated 104 mg/dl; Percent Iron Saturation 26 % (15-50); Potassium 3.8 mmol/L (3.3-5.1); Sodium 141 mmol/L (135-145); Total Iron Binding Capacity 268 mcg/dL (228-428); Total Protein 6.9 g/dL (6.5-8.0); Triglycerides 58 mg/dL; Unsaturated Iron Binding 198 ug/dL
[2023-05-11 11:28] LABS: Ferritin 9 ng/mL (10-122); Insulin 5 uU/mL (2-29); TSH reflex Free T4 0.93 uIU/mL (0.32-4.0); Vitamin D 25-OH Total 52.6 ng/mL (>30)
[2023-05-11 11:39] LABS: Folate 16.9 ng/mL (> or = 4.0); Vitamin B12 468 pg/mL (200-900)
[2023-05-15 15:34] LABS: Calcium (PTHI) 9.5 mg/dL (8.6-10.2); PTHI 37 pg/mL (16-77)
[2023-05-16 16:43] LABS: Zinc 62 mcg/dL (60-130)
[2023-05-17 16:13] LABS: Vitamin A 43 mcg/dL (38-98)
[2023-05-19 13:54] LABS: Vitamin B1 13 nmol/L (8-30)
== END 2023-05-11 06:10 | disposition home or self-care (01) ==
LOC: HO.LAB 06:09
PROVIDERS: PCP Family Medicine; Visit Provider Physician Assistant Surgical
DX: E66.9 Obesity, unspecified (principal); Z90.3 Acquired absence of stomach [part of]
CPT/HCPCS: 36415; 80053; 80061; 82306; 82607; 82728; 82746; 83036; 83525; 83540; 83970; 84425; 84443; 84590; 84630; 85025; 86140

== ENCOUNTER → 2023-05-19 11:10 | Outpatient (BNVA) | payer OTHER, SELFPAY | PROVIDERS: PCP Family Medicine; Visit Provider Dietitian, Registered | DX: E66.9 Obesity, unspecified (principal); Z98.84 Bariatric surgery status; Z71.3 Dietary counseling and surveillance | CPT/HCPCS: 97803 ==

== ENCOUNTER 2023-12-21 13:11 | Outpatient (AMB) | payer OTHER, SELFPAY ==
--- NOTE | 2023-12-21 13:00 | MHC.AMNUTRGE ---
Intake VS Expanded 12/21/23 14:37 Height 5 ft 4 in Weight 194 lb BMI 33.3 Intake Visit Reasons: VIDEO PO LSG 02/24/22 Allergies mold Allergy (Severe, Verified 01/18/23 23:36) Rash, Itchy Seasonal Allergies Allergy (Severe, Verified 01/18/23 23:36) Runny Nose, Watery Eyes HPI Nutrition Presentation Details LSG 02/24/[address] Funk Weight at 3MO 206# weight at 6 MO 183# lowest weight post op at 11 MO was 173 weight at 1 year 179# currednt weight at almost 2 years post op 194 Pts goal or less to be a candidate for skin removal 150# Reason for consult elevated BMI Diet Assmnt Details I don't eat good eats fast food, snacks, skips meals (mostly breakfast) likes lunch, dinner likes to have a small meal or snack . states she wants a meal plan to get started. she is motivated to improve her eating habits . Vitamins: ran out of time to discuss Exercise: bought a treadmill for her house , cancelled her gym membership. having back issues and back pain at the moment so not exercising. Dietary counseling reduction Diagnosis Nutrition problem #1 overweight/obesity As related to (etiology) #1 excess energy intake and physical inactivity As evidenced by (sign/symptom) #1 high BMI Monitoring/Goals Nutrition problem monitoring total energy intake, level of knowledge/skill, total PRO intake, total CHO intake and weight Outcome progress progressing Learning/Education Readiness to learn good Stages of change action Most Recent Diabetes Results: Cholesterol 172 mg/dL 05/11/23 HDL Cholesterol 57 mg/dL 05/11/23 Triglycerides 58 mg/dL 05/11/23 Creatinine 0.71 mg/dL (0.5-1.4) 05/11/23 Blood Urea Nitrogen 9 mg/dL (9-16) 05/11/23 Sodium 141 mmol/L (135-145) 05/11/23 Potassium 3.8 mmol/L (3.3-5.1) 05/11/23 Chloride 105 mmol/L (96-108) 05/11/23 Carbon Dioxide 29 mmol/L (22-29) 05/11/23 Calcium 9.2 mg/dL (8.4-10.2) 05/11/23 AST 15 U/L (5-31) 05/11/23 ALT 10 U/L (0-31) 05/11/23 Total Protein 6.9 g/dL (6.5-8.0) 05/11/23 Albumin 3.9 g/dL (3.5-5.0) 05/11/23 [facility] Medical History Anxiety Back pain Chronic headaches Depression GERD (gastroesophageal reflux disease) Morbid obesity RBBB Surgical History Hx of wisdom tooth extraction Status post sleeve gastrectomy Family History Mother Asthma Diabetes Hypertension Father Asthma Diabetes Hyperlipidemia Hypertension Sister No problems noted. Sister No problems noted. Sister No problems noted. Sister No problems noted. Brother No problems noted. Brother No problems noted. Brother No problems noted. Brother No problems noted. Social History Are you a primary healthcare facility administrator to a significant other at home: No Do you presently have visiting nurse or other home services: No Alcohol intake: current Alcohol intake frequency: holidays/special occasions only Patient Tobacco Use Status: Never used Tobacco service: No Current occupational status: employed Assessment & Plan Assessment & Plan (1) Obesity (BMI 30-39.9): Code(s): E66.9 - Obesity, unspecified Plan nutrition f/u in 2-4 weeks Patient Instructions: pt with steady weight regain and returning back to old eating habits. she requests meal plan to help her start. will provide and follow up in 3-4 weeks to assess how it is working and any changes needed. breakfast: try not to skip, try to have about 2 hours after waking up. Can do protein shake or 2 eggs for example lunch 2-3oz protein , 2-3oz veg dinner 2-3oz protein, 2-3oz veg provided recipe resources and food lists to help with meal planning. also needs PA appt for routine annual appt Telehealth Telehealth Location of provider rendering services: practice address Location of patient: other (in her car) Patient Identification confirmed using: Name, : Yes Telehealth method: video Patient verbally consented to treatment: Yes Patient verbally consented to billing insurance company: Yes Patient informed of any privacy concerns related to visit: Yes Minutes spent on Phone/Video with Pt.: 30 Coding Level of Care Code Nutr Indiv Subseq ([id number]) Diagnoses Obesity (BMI 30-39.9) E66.9 Time Spent (min) 30
[2023-12-21 14:37] VITALS: BMI 33.3
== END 2023-12-21 14:34 | disposition home or self-care (01) ==
LOC: HO.HBS 13:11
PROVIDERS: PCP Family Medicine; Visit Provider Dietitian, Registered
DX: E66.9 Obesity, unspecified (principal)

== ENCOUNTER → 2023-12-21 13:11 | Outpatient (BNVA) | payer OTHER, SELFPAY | PROVIDERS: PCP Family Medicine; Visit Provider Dietitian, Registered | DX: E66.9 Obesity, unspecified (principal); Z68.33 Body mass index [BMI] 33.0-33.9, adult | CPT/HCPCS: 97803 ==

== ENCOUNTER 2024-03-18 13:17 | Outpatient (AMB) | payer OTHER, SELFPAY ==
--- NOTE | 2024-03-18 13:12 | MHC.OFFVISWM ---
Intake Visit Reasons: (Telephone) PO LSG 02/24/22 Allergies mold Allergy (Severe, Verified 01/18/23 23:36) Rash, Itchy Seasonal Allergies Allergy (Severe, Verified 01/18/23 23:36) Runny Nose, Watery Eyes Medication List - Last Reconciled 03/18/24 by DAVID Young biotin 1 mg PO DAILY hnozeijssf-hriszvhaoaiag-tokv 50-300-40 mg (Fioricet) 1 cap PO Q6H PRN calcium citrate-vitamin D3 315 mg-5 mcg (200 unit) (Calcium Citrate + D) 1 tab PO BID clotrimazole 1% 1 appl topical BID multivitamin 1 tab PO DAILY zinc acetate (Galzin) 50 mg PO DAILY zinc gluconate 10 mg PO .every other day HPI Comments Details: This?is a?29?yo female who is s/p LSG 02/24/2022. Presents for 2 year post op visit. Weight at last visit on 12/21/2023 was 194 pounds with a BMI of 33.3, pt is unsure of weight today as she is waiting on getting a new scale.? No complaints of nausea, emesis, abdominal pain or reflux, or constipation. Present meal plan includes: breakfast: try not to skip, try to have about 2 hours after waking up. Can do protein shake or 2 eggs for example lunch 2-3oz protein, 2-3oz veg dinner 2-3oz protein, 2-3oz veg Pt is often low in protein, recognizes this. All meals last 20 - 30 minutes and does not drink and eat at the same time. Exercise routine includes: going to the gym, Pt reports rashes of excess skin of abdomen. PFSH Medical History Anxiety Back pain Chronic headaches Depression GERD (gastroesophageal reflux disease) Morbid obesity RBBB Surgical History Hx of wisdom tooth extraction Status post sleeve gastrectomy Family History Mother Asthma Diabetes Hypertension Father Asthma Diabetes Hyperlipidemia Hypertension Sister No problems noted. Sister No problems noted. Sister No problems noted. Sister No problems noted. Brother No problems noted. Brother No problems noted. Brother No problems noted. Brother No problems noted. Social History Are you a primary nonfarm animal caretaker to a significant other at home: No Do you presently have visiting nurse or other home services: No Alcohol intake: current Alcohol intake frequency: holidays/special occasions only Patient Tobacco Use Status: Never used Tobacco service: No Current occupational status: employed Physical Exam Skin Other: Telehealth Telehealth Telehealth Platform: Telephone Location of provider rendering services: other Location of patient: address on file Patient Identification confirmed using: Name, : Yes Telehealth method: voice only Patient verbally consented to treatment: Yes Patient verbally consented to billing insurance company: Yes Patient informed of any privacy concerns related to visit: Yes Minutes spent on Phone/Video with Pt.: 15 Assessment & Plan Assessment & Plan (1) Obesity: Code(s): E66.9 - Obesity, unspecified Category: Medical (2) Status post sleeve gastrectomy: Comment: 02/24/22 Code(s): Z90.3 - Acquired absence of stomach [part of] Category: Surgical Plan Pt given a goal of 80g protein per day. Clotrimazole ointment ordered for rashes of excess skin. Gave contact info for Dr. Perry Barron per pt request. Goal weight closer to BMI 25 prior to skin removal surgery with us. Encouraged pt to reach out via text with any questions Patient is obese and is not considered stable at this time. I spent a total of 30 minutes reviewing/updating records, examining the patient and counseling the patient on weight management as detailed above. Medications: New clotrimazole 1% 1 appl topical BID 45 grams 3RF
== END 2024-03-18 13:59 | disposition home or self-care (01) ==
LOC: HO.HBS 13:17
PROVIDERS: PCP Family Medicine; Visit Provider Physician Assistant Surgical
DX: E66.9 Obesity, unspecified (principal); Z90.3 Acquired absence of stomach [part of]
CPT/HCPCS: 99214

== ENCOUNTER → 2024-03-18 13:17 | Outpatient (BNVA) | payer OTHER, SELFPAY | PROVIDERS: PCP Family Medicine; Visit Provider Physician Assistant Surgical ==

== ENCOUNTER 2025-03-03 18:38 | Emergency (ER) | payer OTHER, SELFPAY ==
--- NOTE | 2025-03-03 | ECG_ITS ---
Test Reason : DIZZINES Blood Pressure : */* mmHG Vent. Rate : 70 BPM Atrial Rate : 70 BPM P-R Int : 106 ms QRS Dur : 110 ms QT Int : 416 ms P-R-T Axes : 12 1 14 degrees QTcB Int : 449 ms Sinus rhythm with short OH Incomplete right bundle branch block Borderline ECG When compared with ECG of 03-Mar-2025 19:11, Significant changes have occurred Referred By: Generic ED Physician Electronically Signed By: Jed Sanchez
[2025-03-03 19:04] VITALS: BP 156/91; PULSE 72; RESP 16; TEMP 37.1; O2SAT 100; BMI 39.3
--- NOTE | 2025-03-03 19:09 | ECG_ITS ---
Test Reason : DIZZINESS Blood Pressure : */* mmHG Vent. Rate : 70 BPM Atrial Rate : 70 BPM P-R Int : 138 ms QRS Dur : 78 ms QT Int : 366 ms P-R-T Axes : * -4 186 degrees QTcB Int : 395 ms Normal sinus rhythm Minimal voltage criteria for LVH, may be normal variant ( R in aVL ) WPW vs changes related to LVH When compared with ECG of 07-Sep-2021 08:08, LVH present Changes consistent with preexcitation (sometimes mimicked by LVH) Referred By: Alejandro Graham Electronically Signed By: Jed Sanchez
--- NOTE | 2025-03-03 19:09 | ED.GENADULT ---
HPI - General Adult General Chief complaint: General Medical Stated complaint: dizzy spells, fatigue, vomiting Time Seen by Provider: 03/03/25 22:58 Source: patient and family Mode of arrival: ambulatory Limitations: no limitations History of Present Illness ED Provider: DR. Manrique HPI narrative: 30-year-old female s/p sleeve gastrectomy 2 years ago came in for evaluation of feeling fatigue and generalized weakness with dry mouth, patient is reporting nonbloody watery diarrhea times 1 week, few episode of vomiting, patient feels dizzy and lightheadedness and lack of energy. No sick contacts, no recent travel, no recent use of antibiotic, no abdominal pain. No weakness, no numbness, no blurry vision, no double vision. Related Data Home Medications ?Medication ?Instructions ?Recorded ?Confirmed biotin 1 mg tablet 1 mg PO DAILY 08/05/22 03/18/24 calcium 315 mg (as 1 tab PO BID 08/05/22 03/18/24 citrate)-vitamin D3 5 mcg (200 unit) tablet (Calcium Citrate + D) multivitamin 1 tab PO DAILY 08/05/22 03/18/24 Previous Rx's ?Medication ?Instructions ?Recorded fggqtjlehc-onfojbejfsbhv-aqtrvtho 1 cap PO Q6H PRN headache #20 caps 01/19/23 50 mg-300 mg-40 mg capsule (Fioricet) zinc gluconate 10 mg lozenges 10 mg PO .every other day #100 ea 05/19/23 zinc acetate 50 mg (zinc) capsule 50 mg PO DAILY #90 caps 06/05/23 (Galzin) clotrimazole 1 % topical cream 1 appl topical BID #45 grams 03/18/24 loperamide 2 mg tablet (Imodium 2 mg PO Q6H PRN loose stool #10 03/03/25 A-D) tabs Allergies Allergy/AdvReac Type Severity Reaction Status Date / Time mold Allergy Severe Rash, Itchy Verified 03/03/25 19:07 Seasonal Allergies Allergy Severe Runny Verified 03/03/25 19:07 Nose, Watery Eyes Review of Systems Review of Systems: All other systems are reviewed and are negative Constitutional: Reports as per HPI and Reports no additional constitutional complaints Eyes: Reports as per HPI and Reports no additional eye complaints Reports system reviewed and no additional complaints, except as documented Cardiovascular: Reports as per HPI and Reports no additional cardiovascular complaints Respiratory: Reports as per HPI and Reports no additional respiratory complaints Gastrointestinal: Reports as per HPI and Reports no additional gastrointestinal complaints Genitourinary: Reports no additional female genitourinary complaints Musculoskeletal: Reports no additional musculoskeletal complaints Skin/Breast: Reports system reviewed and no additional complaints, except as docu Psychiatric: Reports no additional psychiatric complaints Endocrine: Reports no additional endocrine complaints Hematologic/Lymphatic: Reports no additional hematologic/lymphatic complaints Allergic/Immunologic: Reports no additional allergic/immunologic complaints Reports system reviewed and no additional complaints, except as documented and Reports Abnormal speech present COUNTS INCLUDE 234 BEDS AT THE [facility] Past Medical History Medical History RBBB Chronic headaches Back pain GERD (gastroesophageal reflux disease) Anxiety Depression Morbid obesity Surgical History Status post sleeve gastrectomy Hx of wisdom tooth extraction Family History Family History Mother Asthma Diabetes Hypertension Father Asthma Diabetes Hyperlipidemia Hypertension Sister No problems noted. Sister No problems noted. Sister No problems noted. Sister No problems noted. Brother No problems noted. Brother No problems noted. Brother No problems noted. Brother No problems noted. Social History Social History Are you a primary morning caregiver to a significant other at home: No Do you presently have visiting nurse or other home services: No Alcohol intake: current Alcohol intake frequency: holidays/special occasions only Patient Tobacco Use Status: Never used Tobacco Advance Directives: No Advance Directives Information Provided: No service: No Current occupational status: employed Physical Exam ED Vital Signs: Vital Signs - 24 hr 03/03/25 19:04 03/03/25 22:35 03/03/25 23:08 Temperature 98.7 F 97.7 F Pulse Rate 72 64 63 Respiratory Rate 16 18 Blood Pressure 156/91 H 145/88 H 131/91 H Pulse Oximetry 100 100 Oxygen Delivery Method Room Air Room Air 03/03/25 23:08 03/03/25 23:09 03/04/25 00:37 Temperature 97.8 F Pulse Rate 74 68 66 Respiratory Rate 18 Blood Pressure 140/94 H 150/102 H 108/79 Pulse Oximetry 97 Oxygen Delivery Method Room Air 03/04/25 00:41 Temperature 97.8 F Pulse Rate 66 Respiratory Rate 18 Blood Pressure 108/79 Pulse Oximetry 97 Oxygen Delivery Method Room Air BMI result Body Mass Index 39.3 Vital signs have been reviewed and appear to be correct. Blood pressure elevated. Heart rate normal. Respiratory rate normal. Temperature normal. Oxygen saturation normal. Appearance: Alert. Oriented X3. No acute distress. Head: Normal external exam. Normocephalic. Atraumatic. No Jordan signs noted. No raccoon eyes noted Eyes: PERRLA. EOMI. Conjunctiva and sclera normal. Eyelids normal. ENT: TM's Normal. Pharynx normal. Uvula midline. Dry mucous membranes. No trismus noted. No drooling noted. No muffled voice noted. Neck: Normal inspection. Neck supple. FROM. No adenopathy. Thyroid Normal. No meningeal signs. No neck mass noted. CVS: Normal heart rate and rhythm. Heart sound normal. No murmurs noted. Pulses normal throughout. Respiratory: No respiratory distress. Painless inspiration. Breath sounds normal. No wheezes/rales/rhonchi noted. Chest nontender. No accessory muscle usage noted or decreased air movement noted. Abdomen: Soft and nontender. Bowel sounds normal in all 4 quadrants. No distention noted. No organomegaly noted. No visible injury noted. Back: No CVA tenderness. Full range of motion noted. Skin: Skin warm and dry. Normal skin color. Normal skin turgor. No rashes/lesions/lacerations noted. Extremities: No lower extremity edema. Extremities exhibit normal range of motion. Extremities nontender. Neuro: Oriented X 3. Cranial nerve exam: II-XII are grossly intact No motor deficit. No sensory deficit. Reflexes normal. Course Course Course Narrative: RME: 30 year female presents to ED for dry mouth, feeling dizzy, fatigue, decreased p.o. intake, diarrhea, chills, and headache for the past 1 week. Patient states history of gastric bypass 2 years ago but does not have any abdominal pain. Labs ordered. Reevaluation(s) Reevaluation #1: 03/04/2025; 30-year-old female s/p sleeve gastrectomy with persistent nonbloody watery diarrhea, slightly dehydrated, feels better with IV fluids, no electrolyte derangement, otherwise unremarkable labs, abdominal exam revealed no tenderness or rebound tenderness radiographic study is not indicated at this point. Time: 01:00 Medications Administered Discontinued Medications Generic Name Dose Route Start Last Admin Trade Name Felecia PRN Reason Stop Dose Admin Sodium Chloride 1,000 mls @ 999 mls/hr 03/03/25 23:06 03/04/25 00:35 Ns IV 03/04/25 00:06 Infused .Q1H1M ONE Infusion Loperamide HCl 2 mg 03/03/25 23:21 03/03/25 23:30 Loperamide Hcl 2 Mg Capsule PO 03/03/25 23:22 2 mg ONCE ONE Administration Medical Decision Making Differential Diagnosis Differential Diagnoses: The differential diagnosis associated with the presentation includes (Dehydration, electrolyte derangement, , severe anemia, abdominal pain.) Admission/Observation Consideration of admission/observation: Escalation of care including admission/observation considered Lab Data MDM Lab Attestation statement: I reviewed the patient's lab results. 03/03/25 19:26 03/03/25 19:26 Labs: Lab Results 03/03/25 03/03/25 Range/Units 19:26 23:12 WBC 7.1 (4.8-10.8) X10*3/uL RBC 4.14 L (4.20-5.50) X10*6/uL Hgb 11.8 L (12.0-16.0) g/dl Hct 35.0 L (37.0-47.0) % MCV 84.5 (80.0-98.0) fL MCH 28.5 (27.0-33.0) pg MCHC 33.7 (31.0-35.0) g/dl RDW 14.6 (11.0-16.0) % Plt Count 236 (160-400) X10*3/uL MPV 11.0 (9.4-12.3) fL Immature Gran % (Auto) 0.3 (0.0-0.4) % Neut % (Auto) 50.4 (45-73) % Lymph % (Auto) 40.2 H (20-40) % Stokes % (Auto) 7.4 (2-11) % Eos % (Auto) 0.7 (0-4) % Baso % (Auto) 1.0 (0-2) % Lymph # (Auto) 2.9 (1.2-4.9) X10*3/uL Stokes # (Auto) 0.5 (0.1-1.2) X10*3/uL Eos # (Auto) 0.1 (0.0-0.4) X10*3/uL Baso # (Auto) 0.1 (0.0-0.2) X10*3/uL Abs Immat Gran (auto) 0.02 (0.00-0.03) X10*3/uL Absolute Neuts (auto) 3.6 (2.0-8.3) x10*3/uL Absolute Nucleated RBC 0.000 (0.0-0.012) X10*3/uL Nucleated RBC % (auto) 0.0 (0.0-0.2) /100WBC Sodium 141 (135-145) mmol/L Potassium 3.4 (3.3-5.1) mmol/L Chloride 111 H (96-108) mmol/L Carbon Dioxide 24 (22-29) mmol/L Anion Gap 9 L (12-20) BUN 14 (9-16) mg/dL Creatinine 0.70 (0.5-1.4) mg/dL Estim Creat Clear Calc 130.6 Estimated GFR > 60 Random Glucose 72 (60-115) mg/dL Calcium 8.9 (8.4-10.2) mg/dL Total Bilirubin 0.2 (0.0-1.0) mg/dL AST 19 (5-31) U/L ALT 8 (0-31) U/L Alkaline Phosphatase 44 (39-117) U/L Troponin I High Sens < 2.7 (<3.5-17.0) ng/L Total Protein 6.8 (6.5-8.0) g/dL Albumin 4.0 (3.5-5.0) g/dL Lipase 27 (8-78) U/L Beta HCG, Quant < 2 mIU/mL Urine Color Yellow Urine Appearance Clear Urine pH 5.5 (5.0-9.0) Ur Specific [place] >= 1.030 H (1.005-1.025) Urine Protein Negative (Neg-Trace) mg/dL Urine Glucose (UA) Negative (Negative) mg/dL Urine Ketones Negative (Negative) mg/dL Urine Blood Negative (Negative) Urine Nitrite Negative (Negative) Ur Leukocyte Esterase Negative (Negative) Influenza Type A (PCR) NEGATIVE (Negative) Influenza Type B (PCR) NEGATIVE (Negative) RSV RNA Qual (PCR) NEGATIVE (Negative) SARS-CoV-2 RNA (RT-PCR) NEGATIVE (Negative) Discharge Plan Discharge Clinical Impression: Dehydration Patient Disposition: Home, Self-Care Instructions: Dehydration (ED) Additional Instructions: Keep yourself hydrated and drink plenty of fluids. Prescriptions: New loperamide [Imodium A-D] 2 mg tablet 2 mg PO Q6H PRN (Reason: loose stool) Qty: 10 0RF No Action zinc gluconate 10 mg lozenge 10 mg PO .every other day Qty: 100 3RF Galzin 50 mg (zinc) capsule 50 mg PO DAILY Qty: 90 2RF swcwmhvuvk-ecjzugesptxcf-joxz [Fioricet] 50-300-40 mg capsule 1 cap PO Q6H PRN (Reason: headache) Qty: 20 0RF multivitamin Tablet 1 tab PO DAILY calcium citrate-vitamin D3 [Calcium Citrate + D] 315 mg-5 mcg (200 unit) tablet 1 tab PO BID biotin 1 mg tablet 1 mg PO DAILY clotrimazole 1 % cream 1 appl topical BID Qty: 45 3RF Interventions: ED Discharge Assessment Last Done: 03/04/25 00:41 Discharge Date/Time: 03/04/25 00:41 Print Language: [place] Island[place]
[2025-03-03 19:32] LABS: MANUAL DIFF FLAG NO
[2025-03-03 19:33] LABS: Basophils Absolute Auto 0.1 X10*3/uL (0.0-0.2); Eosinophils Absolute Auto 0.1 X10*3/uL (0.0-0.4); Eosinophils Percent Auto 0.7 % (0-4); Hemoglobin 11.8 g/dl (12.0-16.0); Imm Gran Abs Auto 0.02 X10*3/uL (0.00-0.03); Imm Gran Pct Auto 0.3 % (0.0-0.4); Lymphocytes Absolute Auto 2.9 X10*3/uL (1.2-4.9); Lymphocytes Percent Auto 40.2 % (20-40); Mean Corpuscular HGB Conc 33.7 g/dl (31.0-35.0); Mean Corpuscular Hemoglobin 28.5 pg (27.0-33.0); Mean Corpuscular Volume 84.5 fL (80.0-98.0); Monocytes Absolute Auto 0.5 X10*3/uL (0.1-1.2); Monocytes Percent Auto 7.4 % (2-11); Neutrophils Absolute Auto 3.6 x10*3/uL (2.0-8.3); Neutrophils Percent Auto 50.4 % (45-73); Platelet Count 236 X10*3/uL (160-400); Red Blood Count 4.14 X10*6/uL (4.20-5.50); Red Cell Distribution Width 14.6 % (11.0-16.0); White Blood Count 7.1 X10*3/uL (4.8-10.8)
[2025-03-03 19:57] LABS: Alanine Aminotransferase 8 U/L (0-31); Alkaline Phosphatase 44 U/L (39-117); Anion Gap 9 (12-20); Aspartate Amino Transferase 19 U/L (5-31); Bilirubin Total 0.2 mg/dL (0.0-1.0); Blood Urea Nitrogen 14 mg/dL (9-16); Calcium 8.9 mg/dL (8.4-10.2); Carbon Dioxide 24 mmol/L (22-29); Chloride 111 mmol/L (96-108); Creatinine Clr Calc Pharmacy 130.6; Estimated Glomerular Filt Rate > 60; Glucose Random 72 mg/dL (60-115); Lipase 27 U/L (8-78); Potassium 3.4 mmol/L (3.3-5.1); Sodium 141 mmol/L (135-145); Total Protein 6.8 g/dL (6.5-8.0)
[2025-03-03 19:59] LABS: HCG Quantitative < 2 mIU/mL
[2025-03-03 20:00] LABS: Troponin-I High Sensitivity < 2.7 ng/L (<3.5-17.0)
[2025-03-03 20:09] LABS: Influenza A PCR NEGATIVE (Negative); Influenza B PCR NEGATIVE (Negative); Resp Syncy Virus RNA Qual PCR NEGATIVE (Negative); SARS COV2 PCR INHOUSE NEGATIVE (Negative)
[2025-03-03 22:35] VITALS: BP 145/88; PULSE 64; RESP 18; TEMP 36.5; O2SAT 100
[2025-03-03 23:08] VITALS: BP 131/91; BP 140/94; PULSE 63; PULSE 74
[2025-03-03 23:09] VITALS: BP 150/102; PULSE 68
[2025-03-03 23:19] LABS: Appearance Urine Clear; Color Urine Yellow; Glucose Urine UA Negative (Negative); Leukocyte Esterase Urine Negative (Negative); Nitrite Urine Negative (Negative); PH 5.5 (5.0-9.0); Specific Gravity - Urine >= 1.030 (1.005-1.025); Urine Blood Negative (Negative); Urine Ketones Negative (Negative); Urine Protein Negative (Neg-Trace)
[2025-03-03] MEDS: 0.9 % Sodium Chloride 1,000 ML 999 ML IV (23:23)
[2025-03-03] MEDS: Loperamide HCl 2 MG CAPSULE PO (23:30)
[2025-03-04 00:37] VITALS: BP 108/79; PULSE 66; RESP 18; TEMP 36.6; O2SAT 97
[2025-03-04 00:41] VITALS: BP 108/79; PULSE 66; RESP 18; TEMP 36.6; O2SAT 97
== END 2025-03-04 00:41 | disposition home or self-care (01) ==
PROVIDERS: Physician Assistant; Emergency Provider Emergency Medicine
DX: E86.0 Dehydration (principal); R42 Dizziness and giddiness; R53.83 Other fatigue; I45.10 Unspecified right bundle-branch block; R94.31 Abnormal electrocardiogram [ECG] [EKG]; R11.2 Nausea with vomiting, unspecified; Z03.818 Encounter for observation for suspected exposure to other biological agents ruled out; Z79.899 Other long term (current) drug therapy
CPT/HCPCS: 0241U; 80053; 81003; 83690; 84484; 84702; 85025; 93005; 96360; 99284

== ENCOUNTER → 2025-03-03 19:09 | Outpatient (BNV) | payer SELFPAY | PROVIDERS: Emergency Provider Emergency Medicine; Visit Provider Internal Medicine Cardiovascular Disease | DX: R42 Dizziness and giddiness (principal); I45.19 Other right bundle-branch block; R94.31 Abnormal electrocardiogram [ECG] [EKG]; I51.7 Cardiomegaly | CPT/HCPCS: 93010 ==

== ENCOUNTER 2025-05-06 14:46 | Emergency (ER) | payer OTHER, SELFPAY ==
--- NOTE | ~2025-05-06 | XR_ITS ---
EXAMINATION: XR SHOULDER, RIGHT CLINICAL INFORMATION: Right shoulder pain COMPARISON: None available. TECHNIQUE: AP external rotation, Grashey, scapular Y, and axillary views of the right shoulder. FINDINGS: Normal bone mineralization. No fracture, dislocation, or suspicious bone lesion. Normal alignment. The glenohumeral joint is normal. The AC joint is normal. There is a neutral lateral acromion. No undersurface spurring. The subacromial space is preserved. Remainder of the soft tissue and bony structures appear normal. XR/XR shoulder RT min 2V IMPRESSION: Normal right shoulder. Electronically signed by: Perry Laird MD 05/06/2025 04:04 PM EDT
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
[2025-05-06 15:22] VITALS: BP 142/83; PULSE 75; RESP 16; TEMP 36.1; O2SAT 94; BMI 40.9
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
--- NOTE | 2025-05-06 19:24 | PC.NURSE ---
PT was seen by DR Patel and discharged in the PIT. Patient is agreeable with dc plan
== END 2025-05-06 19:15 | disposition home or self-care (01) ==
PROVIDERS: Emergency Provider Emergency Medicine
DX: S40.011A Contusion of right shoulder, initial encounter (principal); V43.62XA Car passenger injured in collision with other type car in traffic accident, initial encounter; R07.89 Other chest pain; Y93.89 Activity, other specified; Y92.410 Unspecified street and highway as the place of occurrence of the external cause; Y99.9 Unspecified external cause status
CPT/HCPCS: 71046; 73030; 99281; 99283

== ENCOUNTER → 2025-05-06 15:27 | Outpatient (BNV) | payer OTHER, SELFPAY | PROVIDERS: Visit Provider Radiology Diagnostic Radiology | DX: R07.89 Other chest pain (principal); M25.511 Pain in right shoulder | CPT/HCPCS: 71046; 73030 ==

== ENCOUNTER 2025-09-02 13:11 | Emergency (ER) | payer SELFPAY ==
--- NOTE | ~2025-09-02 | US_ITS ---
EXAMINATION: US LOWER EXTREMITY VEINS LIMITED LEFT HISTORY: left leg swelling COMPARISON: There are no prior studies available for comparison. TECHNIQUE: Duplex and color Doppler sonographic examination of the deep venous system of the left lower extremity was performed. FINDINGS: The common femoral, superficial femoral, and popliteal veins are patent demonstrating normal compressibility, spontaneous flow, and augmentation. There is a normal color and spectral Doppler waveform appearance of the visualized deep venous system above the knee. The posterior tibial and peroneal veins are patent. US/US venous duplex LE LT IMPRESSION: No evidence of acute DVT in the left lower extremity. Electronically signed by: Alon Long MD 09/02/2025 03:39 PM EDT
--- NOTE | ~2025-09-02 | XR_ITS ---
EXAMINATION: XR KNEE, LEFT CLINICAL INFORMATION: knee pain COMPARISON: None available. TECHNIQUE: Four views of the left knee. FINDINGS: No fracture or joint effusion. Alignment is anatomic. Joint spaces are maintained. No abnormal soft tissue calcification. XR/XR knee LT 4V IMPRESSION: Normal left knee. Electronically signed by: Perry Laird MD 09/02/2025 02:23 PM EDT
[2025-09-02 13:35] VITALS: BP 174/94; PULSE 67; RESP 18; TEMP 37; O2SAT 100; BMI 36.9
--- NOTE | 2025-09-02 14:40 | ED.GENADULT ---
HPI - General Adult General Chief complaint: Extremity Injury, Lower Stated complaint: L knee pain Time Seen by Provider: 09/02/25 15:28 Source: patient, RN notes reviewed and old records reviewed Mode of arrival: ambulatory Limitations: no limitations History of Present Illness ED Provider: Chiqui HPI narrative: Patient is a 30-year-old female presenting to the emergency department with complaint of left knee pain for several months. Denies any initial injury or precipitating event. States that recently has been having left lower leg swelling. At times pain radiates up her left lateral thigh as well. Denies any personal or family history of blood clots. Denies any chest pain, dyspnea or palpitations. Has been using mhve-orv-eootfhp medications as well as an uhti-kkx-przehfs knee brace with little change in symptoms. States that recently her knee has felt unsteady as though it might give out. 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 Notes increased pain with going up and downstairs. MD complaint: Knee pain Onset (ago): month(s) Related Data Home Medications ?Medication ?Instructions ?Recorded ?Confirmed biotin 1 mg tablet 1 mg PO DAILY 08/05/22 03/18/24 calcium 315 mg (as 1 tab PO BID 08/05/22 03/18/24 citrate)-vitamin D3 5 mcg (200 unit) tablet (Calcium Citrate + D) multivitamin 1 tab PO DAILY 08/05/22 03/18/24 Previous Rx's ?Medication ?Instructions ?Recorded zpnvmifezf-ojylztmziidjy-ducebpla 1 cap PO Q6H PRN headache #20 caps 01/19/23 50 mg-300 mg-40 mg capsule (Fioricet) zinc gluconate 10 mg lozenges 10 mg PO .every other day #100 ea 05/19/23 zinc acetate 50 mg (zinc) capsule 50 mg PO DAILY #90 caps 06/05/23 (Galzin) clotrimazole 1 % topical cream 1 appl topical BID #45 grams 03/18/24 loperamide 2 mg tablet (Imodium 2 mg PO Q6H PRN loose stool #10 03/03/25 A-D) tabs acetaminophen 500 mg tablet 500 mg PO Q6H PRN fever or pain 05/06/25 #14 tabs cyclobenzaprine 5 mg tablet 5 mg PO TID PRN muscle spasm #10 05/06/25 tabs ibuprofen 600 mg tablet 600 mg PO Q8H PRN fever or pain 05/06/25 #14 tabs naproxen 500 mg tablet 500 mg PO BID #30 tabs 09/02/25 Allergies Allergy/AdvReac Type Severity Reaction Status Date / Time mold Allergy Severe Rash, Itchy Verified 09/02/25 13:38 Seasonal Allergies Allergy Severe Runny Verified 09/02/25 13:38 Nose, Watery Eyes Review of Systems Review of Systems: As per HPI Yes all other systems are reviewed and are negative Constitutional: Constitutional: Reports as per HPI PMFSH Past Medical History Medical History RBBB Chronic headaches Back pain GERD (gastroesophageal reflux disease) Anxiety Depression Morbid obesity Surgical History Status post sleeve gastrectomy Hx of wisdom tooth extraction Family History Family History Mother Asthma Diabetes Hypertension Father Asthma Diabetes Hyperlipidemia Hypertension Sister No problems noted. Sister No problems noted. Sister No problems noted. Sister No problems noted. Brother No problems noted. Brother No problems noted. Brother No problems noted. Brother No problems noted. Social History Social History Are you a primary medicare compliance auditor to a significant other at home: No Do you presently have visiting nurse or other home services: No Alcohol intake: current Alcohol intake frequency: holidays/special occasions only Patient Tobacco Use Status: Never used Tobacco Advance Directives: No Advance Directives Information Provided: No service: No Current occupational status: employed Physical Exam ED Vital Signs: Vital Signs - 24 hr 09/02/25 13:35 Temperature 98.6 F Pulse Rate 67 Respiratory Rate 18 Blood Pressure 174/94 H Pulse Oximetry 100 Oxygen Delivery Method Room Air BMI result Body Mass Index 36.9 Vital signs have been reviewed and appear to be correct. Blood pressure elevated. Heart rate normal. Respiratory rate normal. Temperature normal. Oxygen saturation normal. Const General: cooperative, healthy appearing and no acute distress Orientation/consciousness: oriented to person, oriented to place, oriented to time and patient oriented x3 Limitations: no limitations HENMT Head: Yes normocephalic and Yes atraumatic Ears: external ears normal General nose exam: Normal external nose present Face and sinus: Yes face symmetric Mouth: oropharynx normal and moist mucous membranes Throat: Yes uvula midline Eyes Pupils: Equal, round and reactive pupils present Neck Neck: Yes normal visual inspection and Yes supple Resp Effort & Inspection: normal respiratory effort and able to speak in complete sentences Auscultation: clear to auscultation bilaterally Cardio Rate: regular rate Rhythm: regular rhythm Heart sounds: S1 normal heart sound present and S2 normal heart sound present GI Palpation (GI): Soft to palpation and nontender Auscultation: normoactive bowel sounds General: Yes no CVA tenderness Back/Spine/Pelvis Back: no CVA tenderness Skin General skin exam: elasticity normal and turgor normal Neuro General: oriented to person, oriented to place, oriented to time, patient oriented x3, moves all extremities, no focal motor deficits and CN's II-XI intact bilaterally Cranial nerves: Yes Equal, round and reactive pupils present Cognition (Neuro): normal cognition Extrem General: Yes full ROM, Yes no pedal edema and Yes no calf tenderness Left lower extremity: knee Details: tenderness Location: of the patella and of the lateral joint line, swelling (mild diffuse swelling), normal ROM and knee ligament exam normal Details: anterior drawer test normal, posterior drawer test normal, valgus stress test normal and varus stress test normal; no ecchymosis and no unusual warmth and foot (mild non-pitting edema) Details: vascular exam Details: dorsalis pedis pulse present, posterior tibial pulse present and normal capillary refill Psych Mental Status: mental status grossly normal Affect: normal affect Thought process: Normal thought process present Course Course Course Narrative: RME: 30-year-old female presents to ED for left knee pain for months and intermittent swelling of leg without any trauma. Patient denies any chest pain, shortness of breath, recent long travel or recent surgery. X-ray ultrasound ordered Medical Decision Making Medical Decision Making MDM Narrative: Patient is a 30-year-old female presenting to the emergency department with complaint of left knee pain for several months. On exam patient is awake, A+Ox3, VS WNL, afebrile, normal neurological exam without focal deficits, physical exam findings as above. Given reported symptoms and physical exam findings, initial differential includes but is not limited to meniscal injury, ligamentous injury, strain, sprain, fracture, DVT. X-ray left knee notable for no acute fracture. Left lower extremity ultrasound negative for DVT. My interpretation is in agreement with the radiologist's interpretation. Results discussed with patient and all questions answered. Will refer to orthopedics for further evaluation and management. Advised patient to continue with rest, ice, elevation. Advised she can use oity-dxo-nivcwrz knee brace but should remove it several times per day to perform gentle iqfjh-pl-rqjrjj exercises. Will send prescriptions for naproxen. Return precautions discussed. Patient verbalized understanding of and agreement with plan. Differential Diagnosis Differential Diagnoses: The differential diagnosis associated with the presentation includes As per [facility] Admission/Observation Consideration of admission/observation: Escalation of care including admission/observation considered Patient would have been admitted to the hospital and transferred to appropriate facility had their clinical presentation warranted hospital admission. Independent Interpretation I performed an independent interpretation of an: Plain X-Ray and Ultrasound Interpretation: X-ray left knee notable for no acute fracture. Left lower extremity ultrasound negative for DVT. Radiology Impression Discussion of test interpretation with radiology: I have reviewed the radiologist's reading. Radiologist Impression: XR/XR knee LT 4V IMPRESSION: Normal left knee. US/US venous duplex LE LT IMPRESSION: No evidence of acute DVT in the left lower extremity. External Record Review External record reviewed: Inpatient record, Office record and Outpatient record Prescription Management I considered prescription management with: Pain Medication Discharge Plan Discharge Clinical Impression: Chronic pain of left knee Patient Disposition: Home, Self-Care Instructions: Knee Pain (ED), P.R.I.C.E. Treatment (ED) Additional Instructions: You were evaluated in the emergency department today for left knee pain. Your x-ray did not show evidence of any acute fractures. Your ultrasound did not show evidence of a DVT (blood clot) in your leg. You are being referred to orthopedics for further evaluation of your symptoms. You have been prescribed naproxen which you can take twice daily to decrease plain inflammation. You should not take this medication with other NSAIDs (ibuprofen, aspirin, Naprosyn, etc.). You can continue to use your bvbr-jkm-cawodir knee brace, but should remove it and perform ttuey-wf-wmlewn exercises every few hours. Elevate your leg while at rest. You can apply ice for 10-15 minutes at a time several times daily, using caution not to apply ice directly to the skin. Return to the emergency department if you develop worsening pain, new redness, warmth or any other new or concerning symptoms. Prescriptions: New naproxen 500 mg tablet 500 mg PO BID Qty: 30 0RF No Action zinc gluconate 10 mg lozenge 10 mg PO .every other day Qty: 100 3RF Galzin 50 mg (zinc) capsule 50 mg PO DAILY Qty: 90 2RF hyirfikxrp-bpbwdearrgzhe-bazl [Fioricet] 50-300-40 mg capsule 1 cap PO Q6H PRN (Reason: headache) Qty: 20 0RF cyclobenzaprine 5 mg tablet 5 mg PO TID PRN (Reason: muscle spasm) Qty: 10 0RF ibuprofen 600 mg tablet 600 mg PO Q8H PRN (Reason: fever or pain) Qty: 14 0RF acetaminophen 500 mg tablet 500 mg PO Q6H PRN (Reason: fever or pain) Qty: 14 0RF loperamide [Imodium A-D] 2 mg tablet 2 mg PO Q6H PRN (Reason: loose stool) Qty: 10 0RF multivitamin Tablet 1 tab PO DAILY calcium citrate-vitamin D3 [Calcium Citrate + D] 315 mg-5 mcg (200 unit) tablet 1 tab PO BID biotin 1 mg tablet 1 mg PO DAILY clotrimazole 1 % cream 1 appl topical BID Qty: 45 3RF Referrals: [facility] [Provider Group] Clinical Impression: Chronic pain of left knee Stand Alone Forms: Work/School Release Interventions: ED Discharge Assessment Last Done: 09/02/25 16:58 Discharge Date/Time: 09/02/25 16:58 Print Language: Swiss
[2025-09-02 16:58] VITALS: BP 174/94; PULSE 67; RESP 18; TEMP 37; O2SAT 100
--- OUTSIDE RECORDS SUMMARY | 2025-09-02 18:42 | XMS_ITS | Clinical Summary ---
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 4 Active FLUoxetine (PROZAC) 20 MG tablet Take 1 tablet by mouth every morning. 4 Active clotrimazole (LOTRIMIN) 1 % cream Apply topically 2 (two) times a day. 4 Active Immunizations Immunization Administration Dates Next Due COVID-19 (Pre-09/18) Pfizer Vaccine, mRNA, PF 01/06/2022,01/19/2021,12/29/2020 COVID-19 Pfizer Comirnaty Vaccine 12+ 08/29/2024 Hepatitis B Adult 09/24/2019, 7,12/30/2016,1992,1993,1993 Influenza, Unspecified Formulation 11/03/2023 MMR 09/24/2019, 9,04/12/1997,1993 Tdap 09/27/2019 Varicella 09/24/2019 Family History Medical History Relation Comments Cancer Father Hypertension Father Hypertension Mother Relation Status Comments Father Alive Mother Alive Social History Tobacco Use Types Packs/Day Years Used Date Smoking Tobacco: Never Smokeless Tobacco: Never Tobacco Cessation:Counseling Given: Not Answered Alcohol Use Standard Drinks/Week Comments Not Currently 0 (1 standard drink = 0.6 oz pur e alcohol) Education Answer Date Recorded Are you interested in more education? Not on lianne e 04/02/2024 Are you concerned about learning? Not on file 04/02/2024 No 04/02/2024 No 04/02/2024 Digital Access Answer Date Recorded No 04/02/2024 No 04/02/2024 Reliable internet access at home? Not on file 04/02/2024 Device with a working camera? Not on file Comments Unknown Sex and Gender Information Value Date Recorded Sex Assigned at Not on file Legal Sex Female 3:40 PM EDT Gender Identity Not on file Sexual Orientation Not on file Last Filed Vital Signs Vital Sign Reading Time Taken Comments Blood Pressure 136/87 06/25/2024 2:06 PM EDT Pulse 62 06/25/2024 2:06 PM EDT Temperature - - Respiratory Rate - - Oxygen Saturation - - Inhaled Oxygen Concentration - - Weight 90.6 kg (199 lb 12.8 oz) 06/25/2024 2:06 PM EDT Height 160 cm (5' 3 ) 06/25/2024 2:06 PM EDT Body Mass Index 35.39 06/25/2024 2:06 PM EDT Plan of Treatment Health Maintenance Due Date Last Done Comments DEPRESSION SCREENING 2005 HEPATITIS C SCREENING 2011 HIV ONE-TIME SCREENING (18-65 YEARS) 2011 PAP SMEAR 2014 INFLUENZA VACCINE (#1) 2025 11/03/2023 Adult Td,Tdap Booster 09/27/2029 09/27/2019 SMOKING STATUS SCREENING (Once After 26 Yrs) Completed 06/25/2024 COVID-19 VACCINE Completed 08/29/2024, 08/2022, 01/19/2021, Additional history exists HEPATITIS A VACCINES Aged Out No long er eligible based on patient's age to complete this topic HIB VACCINES Aged Out No longer eligi ble based on patient's age to complete this topic MENINGOCOCCAL VACCINES (ACWY) Aged Out No longer eligible based on patient's age to complete this topic MENINGOCOCCAL VACCINES (B) Aged Out N o longer eligible based on patient's age to complete this topic PNEUMOCOCCAL VACCINES (0-49 years) Aged Out No longer eligible based on patient's age to complete this topic Medical Devices Not on file Insurance [facility] [employer] [facility] [employer] [employer]CO [facility] [employer] [employer] [place] [address] [place] [address] [employer] [place] [address] [place] [address] [employer] Care 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 It is not the complete legal health record.Formerly [facility]
== END 2025-09-02 16:58 | disposition home or self-care (01) ==
PROVIDERS: Emergency Provider Emergency Medicine
DX: M25.562 Pain in left knee (principal); G89.29 Other chronic pain; M79.89 Other specified soft tissue disorders
CPT/HCPCS: 73564; 93971; 99282; 99284

== ENCOUNTER → 2025-09-02 14:05 | Outpatient (BNV) | payer OTHER, SELFPAY | PROVIDERS: Visit Provider Radiology Diagnostic Radiology | DX: R22.42 Localized swelling, mass and lump, left lower limb (principal); M25.562 Pain in left knee | CPT/HCPCS: 73564; 93971 ==